=== PATIENT | female | born 1945 | race Caucasian/White ===

== ENCOUNTER → 2016-10-16 | Outpatient (CLI) | payer MEDICARE, OTHER ==
[2016-10-16 10:19] LABS: ALBUMIN 3.3 GM/DL (3.2-5.2); ALBUMIN/GLOBULIN RATIO 0.94 (1.00-1.93); ALKALINE PHOSPHATASE 95 U/L (45-117); ALT/SGPT 23 U/L (12-78); ANION GAP 15 MEQ/L (8-16); AST/SGOT 13 U/L (15-37); BILIRUBIN,TOTAL 0.3 MG/DL (0.2-1.0); BLOOD UREA NITROGEN 16 MG/DL (7-18); CALCIUM LEVEL 8.6 MG/DL (8.8-10.2); CARBON DIOXIDE LEVEL 26 MEQ/L (21-32); CHLORIDE LEVEL 104 MEQ/L (98-107); CHOLESTEROL LEVEL 213 MG/DL (<200); CREATININE FOR GFR 0.71 MG/DL (0.55-1.02); GLOMERULAR FILTRATION RATE > 60.0 (>39); GLUCOSE, FASTING 138 MG/DL (83-110); POTASSIUM SERUM 4.1 MEQ/L (3.5-5.1); SODIUM LEVEL 145 MEQ/L (136-145); TOTAL PROTEIN 6.8 GM/DL (6.4-8.2); TRIGLYCERIDES LEVEL 225 MG/DL (<150)
== END ==
LOC: M WUC 08:21
PROVIDERS: ATTEND Nurse Practitioner Family
DX: E78.2 Mixed hyperlipidemia (principal); E55.9 Vitamin D deficiency, unspecified; E11.65 Type 2 diabetes mellitus with hyperglycemia; E89.0 Postprocedural hypothyroidism

== ENCOUNTER 2017-02-21 10:15 | Emergency (ER) | payer MEDICARE, OTHER ==
[~2017-02-21] VITALS: Ht 162.6 cm; Wt 83.9 kg
[2017-02-21] MEDS ORDERED: LEVO150T7 PO (10:35)
[2017-02-21] MEDS ORDERED: INSUH10VL (10:35)
[2017-02-21] MEDS ORDERED: ATEN50TA2 PO (10:35)
[2017-02-21] MEDS ORDERED: VITA500C3 PO (10:35)
[2017-02-21] MEDS ORDERED: INSUDET (10:35)
[2017-02-21] MEDS ORDERED: METF500T PO (10:35)
[2017-02-21] MEDS ORDERED: TUMS500C PO (10:35)
[2017-02-21] MEDS ORDERED: ASPI1TAB PO (10:35)
[2017-02-21] MEDS ORDERED: LISI10TA4 PO (10:35)
[2017-02-21] MEDS ORDERED: ALPR0.5T3 PO (10:35)
[2017-02-21] MEDS ORDERED: MULT1TAB18 PO (10:35)
[2017-02-21] MEDS ORDERED: KETOROLAC 30 MG/ML VIAL (J1885) IM ONE (11:00)
[2017-02-21 11:59] VITALS: BP 173/84
--- NOTE | 2017-02-21 11:59 | REP ---
CERVICAL SPINE, AP AND LATERAL: Five views of cervical spine are performed in the AP and lateral projection. The study is extremely limited. C6 vertebral body cannot be visualized. C7 is grossly normal in height. There is mild diffuse spurring. There is posterior facet narrowing, sclerosis, and spurring. This probably causes mild anterior listhesis of C3 and C4. IMPRESSION: Diffuse degenerative changes. Limited visualization of C6 and C7. No fracture is seen of the visualized osseous structures, but underlying fracture of cervical spine cannot completely be excluded. In order to exclude cervical spine fracture, CT would be needed. Signed by Parveen Quinonez MD 02/21/2017 04:21 P
[2017-02-21] MEDS ORDERED: CYCL10TA PO (12:04)
[2017-02-21] MEDS ORDERED: ACET30TAB PO (12:04)
== END 2017-02-21 12:16 | disposition home or self-care (01) ==
LOC: M ED 11:01
DX: M43.6 Torticollis (principal); M50.30 Other cervical disc degeneration, unspecified cervical region; F99 Mental disorder, not otherwise specified; E07.9 Disorder of thyroid, unspecified; Z88.8 Allergy status to other drugs, medicaments and biological substances; Z79.899 Other long term (current) drug therapy; Z79.4 Long term (current) use of insulin; Z79.84 Long term (current) use of oral hypoglycemic drugs
CPT/HCPCS: 72040; 96372; 99282; J1885; J3360

== ENCOUNTER 2017-04-09 17:40 | Inpatient (IN) | payer MEDICARE, OTHER ==
[~2017-04-09] VITALS: Ht 162.6 cm; Wt 79.3 kg
[~2017-04-09 17:40] MED LIST changes: -ACET500T37 PO; -METF500T PO; +METF500T13 PO; -METH-107 PO; -VITA-121 PO
[2017-04-09] MEDS ORDERED: MORPHINE 4 MG/ML 1ML SYRINGE IV ONE (18:00)
[2017-04-09] MEDS ORDERED: ONDANSETRON 4MG/2ML VIAL (J2405) IV ONE (18:00)
[2017-04-09 18:12] LABS: BASO # 0.1 K/mm3 (0.0-0.2); BASO % 0.6 % (0.0-1.0); EOS # 0.1 K/mm3 (0.0-0.50); EOS % 0.9 % (0.0-3.0); LARGE UNSTAINED CELL # 0.3 K/mm3 (0.0-0.4); LARGE UNSTAINED CELL % 2.1 % (0.0-4.0); LYMPH # 2.7 K/mm3 (1.5-4.5); LYMPH % 20.7 % (24.0-44.0); MEAN CORPUSCULAR HEMOGLOBIN 27.4 pg (27.0-33.0); MEAN CORPUSCULAR HGB CONC 32.8 g/dl (32.0-36.5); MEAN CORPUSCULAR VOLUME 83.4 fl (80.0-96.0); MONO # 0.7 K/mm3 (0.0-0.8); MONO % 5.5 % (0.0-5.0); NEUTROPHILS # 8.3 K/mm3 (1.8-7.7); NEUTROPHILS % 70.2 % (36.0-66.0); PLATELET COUNT, AUTOMATED 312 k/mm3 (150-450); RED CELL DISTRIBUTION WIDTH 14.6 % (11.5-14.5); WHITE BLOOD COUNT 11.8 K/mm3 (4.0-10.0)
[2017-04-09 18:27] LABS: INR 0.9
[2017-04-09 18:42] LABS: ANION GAP 7 MEQ/L (8-16); BLOOD UREA NITROGEN 11 MG/DL (7-18); CALCIUM LEVEL 9.2 MG/DL (8.8-10.2); CARBON DIOXIDE LEVEL 29 MEQ/L (21-32); CHLORIDE LEVEL 102 MEQ/L (98-107); CREATININE FOR GFR 0.52 MG/DL (0.55-1.02); GLOMERULAR FILTRATION RATE > 60.0 (>39); GLUCOSE, FASTING 151 MG/DL (83-110); POTASSIUM SERUM 4.2 MEQ/L (3.5-5.1); SODIUM LEVEL 138 MEQ/L (136-145)
[2017-04-09] MEDS ORDERED: VITA-121 PO (18:56)
[2017-04-09] MEDS ORDERED: INSUDET SC (18:56)
[2017-04-09] MEDS ORDERED: METH1TAB40 PO (18:57)
[2017-04-09] MEDS ORDERED: ACET-683 PO (18:59)
[2017-04-09] MEDS ORDERED: CYCL10TA PO (18:59)
[2017-04-09] MEDS ORDERED: DEXTROSE 50% 50 ML SYRINGE IV PRN (19:30)
[2017-04-09] MEDS ORDERED: IPRATROPIUM 0.5MG/ALBUTEROL 2.5MG INH SOL UD 3ML (DUONEB)(J7620) NEB PRN (19:30)
[2017-04-09] MEDS: IPRATROPIUM 0.5MG/ALBUTEROL 2.5MG INH SOL UD 3ML (DUONEB)(J7620) NEB SCH (20:00)
[2017-04-09] MEDS: LEVEMIR (INSULIN DETEMIR) 1 UNITS/0.01ML SC SCH (21:00)
[2017-04-09] MEDS: HumaLOG INSULIN (NovoLOG) PER UNIT SC SCH (21:00)
[2017-04-09] MEDS: NYSTATIN 100,000 UNITS/GM TOPICAL PWD 15 GM TOP SCH (21:00)
[2017-04-09 21:10] VITALS: BP 139/63
--- NOTE | 2017-04-09 21:20 | REPUSA ---
MRI cervical spine with and without contrast Clinical statement: Pain, possible pathologic fracture. Technique: Multiecho multiplanar MRI images of the cervical spine were obtained without administratio n of contrast. No comparison is available. Findings: The cervical vertebral bodies are in satisfactory position and alignment. There is diffuse T1 hypointensity with heterogeneous T2 signal within the C6 vertebral body. Loss of vertebral body he ight is noted at this level. On postcontrast images, there is enhancement surrounding the vertebral b jamari, with soft tissue both anterior and posterior to the vertebral body this level. Moderate central canal narrowing is noted at this level, measuring 11 mm in diameter. There is a second similar area o f bone marrow signal demonstrated within the posterior elements of T2, which also demonstrates enhanc ement on postcontrast images. Several other scattered areas of bone marrow signal abnormality is seen within the C7 and T1 vertebral bodies. No extraosseous soft tissue component is seen at this site ho wever. The visualized portions of the posterior fossa are unremarkable. The cervical cranial junctio n is intact. The surrounding soft tissues are within normal limits. At the cervical vertebral levels, there is no evidence of disc herniation or protrusion. There is no central canal stenosis. The neural foramina are patent bilaterally. Impression: 1. Gross abnormal signal within C6, with compression fracture noted. Diffuse enhancement on postcontr ast images with extensive anterior and posterior extraosseous soft tissue is noted at this level, cau sing moderate central canal stenosis. The findings are highly suspicious for metastatic disease with extraosseous soft tissue metastatic extension, although infection cannot completely be excluded. Clin ical correlation is recommended. 2. Second area of abnormal signal in enhancement within the posterior elements of T2. Other scattered areas of bone marrow signal abnormality are also seen within C7 and T1. All of these lesions are fur ther evidenced is suspect metastatic disease. 3. If there is continued concern regarding full extent of osseous metastatic involvement, nuclear med icine bone scan may be helpful.
[2017-04-09] MEDS ORDERED: SLF 3 ML SYR IV PRN (22:15)
[2017-04-09] MEDS: MORPHINE 2 MG/ML 1ML SYRINGE IV PRN (22:56)
[2017-04-10] VITALS: BP 141/63
[2017-04-10] MEDS ORDERED: METHOCARBAMOL 500 MG TAB PO PRN
[2017-04-10] MEDS ORDERED: ACETAMINOPHEN 500 MG TAB PO PRN
[2017-04-10] MEDS: ALPRAZolam 0.5 MG TAB PO PRN ×2 (00:48→12:58)
[2017-04-10] MEDS: LISINOPRIL 10 MG TAB PO SCH ×6 (00:48→23:10)
[2017-04-10] MEDS: ASPIRIN 81 MG ENTERIC TAB PO SCH ×3 (00:48→23:10)
[2017-04-10] MEDS: ATENOLOL 50 MG TAB PO SCH ×5 (00:49→23:11)
[2017-04-10] MEDS: IPRATROPIUM 0.5MG/ALBUTEROL 2.5MG INH SOL UD 3ML (DUONEB)(J7620) NEB SCH ×4 (02:00→19:47)
[2017-04-10] MEDS: MORPHINE 2 MG/ML 1ML SYRINGE IV PRN ×3 (02:53→19:34)
[2017-04-10 04:00] VITALS: BP 136/63
[2017-04-10] MEDS: CYCLOBENZAPRINE 10 MG TAB PO PRN (04:32)
[2017-04-10] MEDS: SLF 3 ML SYR IV SCH ×3 (04:33→23:13)
--- NOTE | 2017-04-10 05:45 | HPE ---
DATE OF ADMISSION: 04/09/2017 CHIEF COMPLAINT: Neck pain. HISTORY OF PRESENT ILLNESS: The patient is a 71-year-old female with a few months history of neck and left shoulder pain. She was worked up by primary care, Dr. North, and with an x-ray which was unremarkable. She was treated with Tylenol and Flexeril muscle relaxant. She said within the last week, symptoms have progressed, pain as well as loss of strength on the left shoulder and upper arm. She returned to her primary care doctor today who recommended a CT scan of the cervical spine. It was read as a pathological C6 compression fracture. The patient was sent to the hospital for admission. Upon arrival, she was in a cervical collar. Blood pressure was slightly elevated at 168/74. She was given a dose of morphine which she responded improved. She denies chest pain, palpitations, headache, blurry vision, diarrhea, nausea, vomiting, constipation. REVIEW OF SYSTEMS: 10-point system is assessed except listed above in history of present illness (HPI). PAST MEDICAL HISTORY: 1. Hypertension. 2. Hypothyroidism. 3. Anxiety. 4. Vitamin D deficiency. 5. Insulin-dependent diabetes. 6. Lower back pain. 7. Hyperlipidemia. PAST SURGICAL HISTORY: 1. Cholecystectomy. 2. Appendectomy. 3. Total abdominal hysterectomy. 4. Thyroid ablation. FAMILY HISTORY: The patient denies, but notes from her primary care doctor indicated that her father at the age of 54 from cirrhosis due to alcohol abuse, diabetes. Mother in her 90s. She had hypertension, diabetes, and coronary artery disease. She also had coronary artery bypass graft (CABG). She has siblings with high blood pressure, hypertension, and daughter with diabetes. She has a son with diabetes, another son with kidney disease. SOCIAL HISTORY: She never smoked. Denies alcohol abuse or illicit drug use. Has never had a colonoscopy or mammogram. Also no Pap test after total hysterectomy with bilateral salpingo-oophorectomy. She is . Currently lives with . ALLERGIES: 1. Paxil, reaction shortness of breath. 2. STATINS, nausea. MEDICATIONS: - Tylenol with codeine one tablet by mouth four times a day as needed - cyclobenzaprine 10 mg three times a day as needed - alprazolam 0.5 mg tablet daily - Levemir insulin 60 units in a.m., 65 units in p.m. - aspart insulin sliding scale coverage - metformin 500 mg four times a day - levothyroxine 100 mcg once daily - atenolol 50 mg three times a day - lisinopril 10 mg four times a day - aspirin 81 mg once a day - multivitamin - ascorbic acid 500 mg daily - calcium carbonate 500 mg once a day PHYSICAL EXAMINATION: VITAL SIGNS: Blood pressure 139/63, pulse of 90, respiratory rate 18, oxygen saturation 92% on room air, temperature 98.7 degrees Fahrenheit. GENERAL: The patient is alert and oriented to person, place, time and circumstance. In moderate distress, slightly improved. HEENT: Pupils equal, round, and reactive to light. Extraocular muscles intact. Anicteric sclerae. Mucous membranes moist. Trachea midline. CARDIOVASCULAR: S1, S2 present. Rate is regular. No audible murmur. RESPIRATORY: Lungs clear to auscultation bilaterally. GASTROINTESTINAL (GI): Abdomen is soft, nontender, nondistended. Bowel sounds are normal. No guarding or rebound. RECTAL: Exam deferred. GENITOURINARY: Exam deferred. MUSCULOSKELETAL: No edema, cyanosis, calf tenderness. SKIN: Warm and dry, not cyanotic without obvious rash. NEUROLOGIC: The patient has slight weakness mostly in the left upper extremity. No sensation loss noted. Gait assess deferred. LABORATORY DATA: Hematology: White blood cell count 11, hemoglobin 13, hematocrit 40, platelets 312. Chemistry: Sodium 138, potassium 4.2, chloride 102, bicarbonate 29, BUN 11, creatinine 0.52, glucose 151, calcium 9.2. Coagulopathy: PT 12.3, INR 0.90. IMAGING: CT scan reveals C6 pathological fracture. ASSESSMENT: A 71-year-old female who has declined screening tests for most of her life presenting with a few-months history of neck and left shoulder pain, some weakness, unimproved with treatment. CT scan revealing a C6 pathological fracture. IMPRESSION: 1. C6 pathological fracture, possible metastatic disease. 2. History of hypertension. 3. History of insulin-dependent diabetes. 4. History of hyperlipidemia. 5. History of hypothyroidism, stable. 6. Hypertension, stable. 7. Diabetes, stable. 8. History of anxiety and panic attacks, stable as well. PLAN: The patient is admitted to the progressive care unit (PCU). Will continue pain management with morphine 2 mg every two hours as needed for pain. Neurosurgeon, Dr. Zaldivar, was consulted, informed as well. He recommended MRI with and without contrast. Resume the patient's remaining home medications. Monitor fingersticks before meals and at bedtime, covering with sliding-scale insulin, and also resume her Levemir insulin a.m. and p.m. same doses, and deep venous thrombosis (DVT) prophylaxis with Lovenox. Order neurologic checks every four hours.
[2017-04-10] MEDS: HumaLOG INSULIN (NovoLOG) PER UNIT SC SCH ×5 (07:30→21:00)
--- NOTE | 2017-04-10 07:56 | IPNPDOC ---
Subjective Date Seen The patient was seen on 04/10/17. Subjective Chief Complaint/HPI The patient is a 71-year-old female admitted with a reason for visit of C6 Cervical Fracture. Events since last encounter Pt denies any new issues. States pain is under control. Wearing cervical collar. Denies significant weakness. Denies headaches. Denies CP or SOB. Constitutional: Denies: Chills, Fever ENT: Denies: Head Aches Pulmonary: Denies: Dyspnea Cardiovascular: Denies: Chest Pain, Palpitations Gastrointestinal: Denies: Nausea, Vomiting, Abdominal Pain Objective Physical Examination General Exam: Positive: Alert, Cooperative, No Acute Distress Eye Exam: Positive: PERRLA ENT Exam: Positive: Tongue Midline Neck Exam: Positive: Other (wearing cervical collar) Chest Exam: Positive: Clear to auscultation Heart Exam: Positive: Rate Normal, Regular Rhythm Abdomen Exam: Positive: Normal bowel sounds, Soft, Negative: Tenderness Extremity Exam: Negative: Edema Neuro Exam: Positive: Normal Speech, Strength at 5/5 X4 ext (left upper extremity with some weakness with extension/flexion compared to right. Water Resource Specialist appeared to be equal B/L), Sensation Intact, Reflexes 2+ (upper extremity DTRs equal and satifactory B/L) Psych Exam: Positive: Mental status NL Assessment /Plan Problems (1) C6 cervical fracture Status: Acute Problem Specific Plan: Consult Specialist Problem Text: Neurosurgery has been consulted. Pt wearing cervical collar. Pt states she has had neck and shoulder pain since October. Cervical Xrays from February did not show fracture. Pt was referred to Ortho but did not go. She stated that symptoms started to worsen last week including some weakness in the left upper extremity which was new, and she saw her PCP last week who ordered a Cervical CT. The CT was done on 04/09 and showed a suspected pathologic fracture of C6 and C6 retropulsion. The patient was sent to the ER for admission and neurosurgical consult. According to the H&P, neurosurgery recommended cervical MRI. MRI showed "Gross abnormal signal within C6, with compression fracture noted. Diffuse enhancement on postcontrast images with extensive anterior and posterior extraosseous soft tissue is noted at this level , causing moderate central canal stenosis. The findings are highly suspicious for metastatic disease with extraosseous soft tissue metastatic extension, although infection cannot completely be excluded. Clinical correlation is recommended. Second area of abnormal signal in enhancement within the posterior elements of T2. Other scattered areas of bone marrow signal abnormality are also seen within C7 and T1. All of these lesions are further evidenced is suspect metastatic disease." Will order bone scan. (2) DM2 (diabetes mellitus, type 2) Status: Chronic Problem Specific Plan: Monitor Clinically Problem Text: On Levemir and SSI. (3) HTN (hypertension) Status: Chronic Response to Treatment: Worse Problem Specific Plan: Monitor Clinically Problem Text: On Atenolol and Lisinopril. (4) Hypothyroidism Status: Chronic Problem Specific Plan: Monitor Clinically Problem Text: On Synthroid. (5) Anxiety Status: Acute Problem Specific Plan: Monitor Clinically Problem Text: Getting as needed Xanax. Plan/VTE VTE Prophylaxis Ordered?: Yes Plan Family Medicine Attending Note: I saw and examined Ms. Cunningham this afternoon; I discussed her care with DONIS Ontiveros and I agree with his note above. Patient has been evaluated by Neurosurgery and will hopefully be getting surgery within the next 1-2 days. Bone scan will be done tomorrow. She had no complaints other than neck pain today. BP is mildly elevated this afternoon, which could be related to pain - will continue home antihypertensives and monitor. (KES) VS, I&O, 24H, Fishbone Vital Signs/I&O Vital Signs Date Time Temp Pulse Resp B/P (MAP) Pulse Ox O2 Delivery O2 Flow Rate FiO2 04/10/17 04:00 96.2 88 20 136/63 (87) 90 Room Air I&O- Last 24 Hours up to 6 AM 04/10/17 06:00 Intake Total 75 ml Output Total 525 ml Balance -450 ml Laboratory Data 24H LABS Laboratory Tests 2 04/09/17 18:05: White Blood Count 11.8H, Red Blood Count 4.83, Hemoglobin 13.2, Hematocrit 40.3 , Mean Corpuscular Volume 83.4, Mean Corpuscular Hemoglobin 27.4, Mean Corpuscular Hemoglobin Concent 32.8, Red Cell Distribution Width 14.6H, Platelet Count 312, Neutrophils (%) (Auto) 70.2H, Lymphocytes (%) (Auto) 20.7L, Monocytes (%) (Auto) 5.5H, Eosinophils (%) (Auto) 0.9, Basophils (%) (Auto) 0.6 , Neutrophils # (Auto) 8.3H, Lymphocytes # (Auto) 2.7, Monocytes # (Auto) 0.7, Eosinophils # (Auto) 0.1, Basophils # (Auto) 0.1, Large Unclassified Cells % 2.1 , Large Unclassified Cells # 0.3, Prothrombin Time 12.3, Prothromb Time International Ratio 0.90, Anion Gap 7L, Glomerular Filtration Rate > 60.0, Blood Urea Nitrogen 11, Creatinine 0.52L, Sodium Level 138, Potassium Level 4.2 , Chloride Level 102, Carbon Dioxide Level 29, Calcium Level 9.2 04/09/17 21:56: Bedside Glucose (Misc Panel) 175H 04/10/17 06:21: Bedside Glucose (Misc Panel) 217H CBC/BMP Laboratory Tests 04/09/17 18:05 Red Blood Count 4.83, Mean Corpuscular Volume 83.4, Mean Corpuscular Hemoglobin 27.4, Mean Corpuscular Hemoglobin Concent 32.8, Red Cell Distribution Width 14.6 H, Neutrophils (%) (Auto) 70.2 H, Lymphocytes (%) (Auto) 20.7 L, Monocytes (%) (Auto) 5.5 H, Eosinophils (%) (Auto) 0.9, Basophils (%) (Auto) 0.6, Neutrophils # (Auto) 8.3 H, Lymphocytes # (Auto) 2.7, Monocytes # (Auto) 0.7, Eosinophils # (Auto) 0.1, Basophils # (Auto) 0.1, Calcium Level 9.2 Nadeem Archer Apr 10, 2017 07:56 ADAMS RUELAS MD Apr 10, 2017 16:42
[2017-04-10 08:00] VITALS: BP 163/80
[2017-04-10] MEDS: LEVEMIR (INSULIN DETEMIR) 1 UNITS/0.01ML SC SCH ×2 (08:45→23:12)
[2017-04-10] MEDS: ASCORBIC ACID 500 MG TAB PO SCH (08:45)
[2017-04-10] MEDS: VITAMIN D 1,000 INTERNATIONAL UNITS TABLET PO SCH (08:45)
[2017-04-10] MEDS: CALCIUM CARBONATE 500 MG CHEW U/D PO SCH (08:46)
[2017-04-10] MEDS: ENOXAPARIN 40 MG/0.4 ML SYRINGE (J1650) SC SCH (08:47)
[2017-04-10] MEDS ORDERED: LEVOTHYROXINE 150MCG TABLET (0.15MG) PO SCH (09:00)
[2017-04-10] MEDS: NYSTATIN 100,000 UNITS/GM TOPICAL PWD 15 GM TOP SCH ×2 (09:03→23:12)
[2017-04-10 09:49] LABS: BASO # 0.1 K/mm3 (0.0-0.2); BASO % 0.4 % (0.0-1.0); EOS # 0.1 K/mm3 (0.0-0.50); EOS % 0.4 % (0.0-3.0); LARGE UNSTAINED CELL # 0.2 K/mm3 (0.0-0.4); LARGE UNSTAINED CELL % 1.5 % (0.0-4.0); LYMPH # 2.1 K/mm3 (1.5-4.5); LYMPH % 12.5 % (24.0-44.0); MEAN CORPUSCULAR HGB CONC 32.1 g/dl (32.0-36.5); MEAN CORPUSCULAR VOLUME 84.1 fl (80.0-96.0); MONO # 0.8 K/mm3 (0.0-0.8); MONO % 5.5 % (0.0-5.0); NEUTROPHILS # 11.7 K/mm3 (1.8-7.7); NEUTROPHILS % 79.6 % (36.0-66.0); PLATELET COUNT, AUTOMATED 325 k/mm3 (150-450); RED CELL DISTRIBUTION WIDTH 14.7 % (11.5-14.5); WHITE BLOOD COUNT 14.7 K/mm3 (4.0-10.0)
[2017-04-10 10:01] LABS: ALBUMIN 3.1 GM/DL (3.2-5.2); ALBUMIN/GLOBULIN RATIO 0.94 (1.00-1.93); ALKALINE PHOSPHATASE 94 U/L (45-117); ALT/SGPT 27 U/L (12-78); ANION GAP 8 MEQ/L (8-16); AST/SGOT 23 U/L (15-37); BILIRUBIN,TOTAL 0.3 MG/DL (0.2-1.0); BLOOD UREA NITROGEN 12 MG/DL (7-18); CARBON DIOXIDE LEVEL 30 MEQ/L (21-32); CHLORIDE LEVEL 101 MEQ/L (98-107); GLOMERULAR FILTRATION RATE > 60.0 (>39); GLUCOSE, FASTING 184 MG/DL (83-110); POTASSIUM SERUM 4.5 MEQ/L (3.5-5.1); SODIUM LEVEL 139 MEQ/L (136-145); TOTAL PROTEIN 6.4 GM/DL (6.4-8.2)
[2017-04-10] MEDS: LEVOTHYROXINE 150MCG TABLET (0.15MG) PO SCH (11:27)
[2017-04-10 16:00] VITALS: BP 168/76
[2017-04-10 20:00] VITALS: BP 168/64
[2017-04-10 23:25] VITALS: BP 136/60
[2017-04-11] MEDS: IPRATROPIUM 0.5MG/ALBUTEROL 2.5MG INH SOL UD 3ML (DUONEB)(J7620) NEB SCH ×4 (01:24→19:47)
[2017-04-11 03:30] VITALS: BP 158/72
[2017-04-11] MEDS: ALPRAZolam 0.5 MG TAB PO PRN ×3 (04:24→22:45)
[2017-04-11 05:33] LABS: ADD MANUAL DIFFER YES; MEAN CORPUSCULAR HEMOGLOBIN 26.7 pg (27.0-33.0); MEAN CORPUSCULAR HGB CONC 32.1 g/dl (32.0-36.5); MEAN CORPUSCULAR VOLUME 83.2 fl (80.0-96.0); PLATELET COUNT, AUTOMATED 284 k/mm3 (150-450); RED CELL DISTRIBUTION WIDTH 14.6 % (11.5-14.5); WHITE BLOOD COUNT 22.8 K/mm3 (4.0-10.0)
[2017-04-11 05:50] LABS: ALBUMIN 2.8 GM/DL (3.2-5.2); ALBUMIN/GLOBULIN RATIO 0.76 (1.00-1.93); ALKALINE PHOSPHATASE 108 U/L (45-117); ALT/SGPT 37 U/L (12-78); ANION GAP 8 MEQ/L (8-16); AST/SGOT 45 U/L (15-37); BILIRUBIN,TOTAL 0.6 MG/DL (0.2-1.0); BLOOD UREA NITROGEN 16 MG/DL (7-18); CALCIUM LEVEL 9.3 MG/DL (8.8-10.2); CARBON DIOXIDE LEVEL 29 MEQ/L (21-32); CHLORIDE LEVEL 101 MEQ/L (98-107); CREATININE FOR GFR 0.64 MG/DL (0.55-1.02); GLOMERULAR FILTRATION RATE > 60.0 (>39); GLUCOSE, FASTING 190 MG/DL (83-110); POTASSIUM SERUM 3.4 MEQ/L (3.5-5.1); SODIUM LEVEL 138 MEQ/L (136-145); TOTAL PROTEIN 6.5 GM/DL (6.4-8.2)
[2017-04-11] MEDS: SLF 3 ML SYR IV SCH ×3 (06:00→22:01)
[2017-04-11 06:02] LABS: BANDS 7 % (< 11)
[2017-04-11] MEDS: LEVOTHYROXINE 150MCG TABLET (0.15MG) PO SCH (07:01)
[2017-04-11 08:00] VITALS: BP 138/64
--- NOTE | 2017-04-11 08:13 | CR ---
DATE OF CONSULTATION: 04/10/2017 REASON FOR CONSULTATION: Neck pain, C6 cervical fracture. HISTORY OF PRESENT ILLNESS: Ms. Cunningham is a pleasant 71-year-old right-handed female who states that she has had progressive increasing neck pain for the past 3-4 months. She states back in December, January time period she started having neck pain not associated with any injury, accident, fall or trauma. She states that she went to the emergency room, x-rays were done and she was told they were all negative. Last week her symptoms started to increase, increasing neck pain, shoulder pain radiating into the left and right arm with numbness and tingling in her arms and hands. The numbness and tingling is more constant now. She states that if she would bend her head or neck at any period of time she would have increased numbness and she found that she could not even hold her head up. She would have to use her arms or hands. She went to her primary care provider who had scheduled a CT and she was called and told to immediately go to the emergency room because of a fracture. She denies any leg or foot pain. She denies any leg or foot numbness or tingling. She denies any bowel or bladder dysfunction. She states that it feels like she is losing strength and she feels that she is losing strength in her upper extremities. Her who is here with her also states that he finds that she is losing strength. She denies any headache. No hearing or vision changes. She denies any recent illnesses or fever or chills. ALLERGIES: She is allergic to PAXIL which causes shortness of breath. PAST MEDICAL HISTORY: Significant for insulin dependent diabetes mellitus, hypertension, hypothyroidism, hypercholesteremia, anxiety/panic disorder. PAST SURGICAL HISTORY: She had a thyroidectomy approximately 30 years ago. She had a total hysterectomy 30 years ago. She had a cholecystectomy 10 years ago and appendectomy 10 years ago. SOCIAL AND FAMILY HISTORY: She denies smoking. She denies alcohol use. She is . 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 Her is retired . She states that her mother in early 80s and she had a history of coronary artery disease and diabetes mellitus. Father at 55 secondary to alcoholism. She has a brother 65 alive and well with no major medical problems and a sister 71 alive and well with no major medical problems. REVIEW OF SYSTEMS: Ten-point review of systems is negative except that mentioned in history present illness. MEDICATIONS: - aspirin in the 81 mg daily - lisinopril 10 mg four times a day - atenolol 50 mg three times a day - levofloxacin 100 mcg daily - metformin 500 mg four times a day - Levemir insulin - lorazepam 0.5 mg three times a day as needed PHYSICAL EXAMINATION: GENERAL APPEARANCE: No acute distress. Well-developed, well-nourished overweight female. VITAL SIGNS are in the EMR HEENT: Head is normocephalic, atraumatic. Pupils are equal, round react to light. Extraocular movements full and conjugate. She does have a cervical collar in place. RESPIRATORY: Symmetrical rise and fall of her chest. No tachypnea. CARDIAC: Regular rate rhythm. ABDOMEN: Obese, soft, nontender. MUSCULOSKELETAL/NEUROLOGIC EXAMINATION: Speech is clear and fluent. Smile symmetrical. Tongue midline. Hearing is grossly intact bilaterally to finger rub. Good bilateral shoulder shrug. No pronator drift. She does have positive dysmetria. Positive dysdiadochokinesis. She does have pain with minimal range of motion of her head or neck. A positive Lhermitte's sign is reproduced. Strength: Left bicep is at 4+/5, right bicep is 5-/5. Left triceps is 3-/5, right triceps is 3+/5. Left wrist extension 4/5, flexion on the left wrist is 5-/5. Right wrist extension is 5/5. Right wrist flexion is 5/5. Lower extremities: Quads, hamstrings, gastrocs, anterior tibialis and EHL are bilaterally at 5/5. Gait not tested. She denies any decrease sensation to light touch. No clonus is present. Reflexes: Biceps, triceps, knees and ankles are hypoactive, symmetrical. Toes are downgoing bilaterally. She does have some increased muscle tone, stiffness in her lower extremities bilaterally. She is alert and oriented times three. Judgment good. Mood and affect appropriate to setting. DIAGNOSTIC DATA: She had an Magnetic Resonance Imaging (MRI) of her cervical spine which showed signal abnormalities in C6 vertebral body with compression fracture, posterior displacement of spinal cord. Area of enhancement in C7 also in T1. Suspected metastatic disease. NEUROSURGICAL ASSESSMENT: Pathologic C6 fracture, cervical radiculopathy, spinal cord compression, cervical myelopathy and possible metastatic bone CA. PLAN: Neurosurgical intervention was discussed with the patient given that her physical exam findings and weakness in her upper extremities and mild spinal cord compression and her radicular symptoms. I did speak with the PA from hospitalist service, Nadeem Echeverria. Metastatic workup is going to be performed and medical clearance for surgery. I did discuss with the patient and her anterior cervical diskectomy and fusion and posterior fusion, pedicle screws, johnie instrumentation. I did explain to them the procedure. I also explained to them the risk of this procedure including but not limited to infection, bleeding, heart attack, stroke, , nerve damage, paralysis, quadriparesis, spinal cord damage, need for more surgery, no improvement in condition, worse condition, , no guarantees made. The patient states that she is understanding. We will await the metastatic workup and then proceed with surgical decompression. I have reviewed and discussed this case thoroughly with Dr. Quintana, and we are awaiting clearance. We have discussed with the instrumentation parts sales representative to have available all instrumentation needed for this case. I have also ordered a cervical thoracic brace and a cervical collar. Once the cervical thoracic brace is in place, we will obtain a CT scan of cervical and thoracic spine with stealth protocol. All other medical issues and conditions will be followed by the medical team.
[2017-04-11] MEDS: HumaLOG INSULIN (NovoLOG) PER UNIT SC SCH ×4 (08:42→21:00)
[2017-04-11] MEDS: LEVEMIR (INSULIN DETEMIR) 1 UNITS/0.01ML SC SCH ×2 (08:43→21:00)
[2017-04-11] MEDS: ATENOLOL 50 MG TAB PO SCH ×3 (08:44→21:59)
[2017-04-11] MEDS: CALCIUM CARBONATE 500 MG CHEW U/D PO SCH (08:44)
[2017-04-11] MEDS: ENOXAPARIN 40 MG/0.4 ML SYRINGE (J1650) SC SCH (08:44)
[2017-04-11] MEDS: VITAMIN D 1,000 INTERNATIONAL UNITS TABLET PO SCH (08:44)
[2017-04-11] MEDS: ASCORBIC ACID 500 MG TAB PO SCH (08:45)
[2017-04-11] MEDS: LISINOPRIL 10 MG TAB PO SCH ×4 (08:45→22:00)
[2017-04-11] MEDS: NYSTATIN 100,000 UNITS/GM TOPICAL PWD 15 GM TOP SCH ×2 (08:52→22:01)
--- NOTE | 2017-04-11 09:41 | IPNPDOC ---
Subjective Date Seen The patient was seen on 04/11/17. Subjective Chief Complaint/HPI The patient is a 71-year-old female admitted with a reason for visit of C6 Cervical Fracture. Events since last encounter Pt this morning without new concerns. She has numbness, some tingling in her fingers. Pain is controlled when she is lying down. She doesnt' seem to remember NS coming to see her yesterday. General: Denies: Fatigue Constitutional: Denies: Chills, Fever Pulmonary: Denies: Dyspnea, Cough Cardiovascular: Denies: Chest Pain, Palpitations Gastrointestinal: Denies: Nausea, Vomiting, Diarrhea Neurological: Denies: Weakness Psych: Reports: Mood Normal Objective Physical Examination General Exam: Positive: Alert, Cooperative, No Acute Distress Eye Exam: Positive: PERRLA ENT Exam: Positive: Tongue Midline Neck Exam: Positive: Other (wearing cervical collar) Chest Exam: Positive: Clear to auscultation Heart Exam: Positive: Rate Normal, Regular Rhythm Abdomen Exam: Positive: Normal bowel sounds, Soft, Negative: Tenderness Extremity Exam: Negative: Edema Neuro Exam: Positive: Normal Speech, Strength at 5/5 X4 ext (left upper extremity with some weakness with extension/flexion compared to right. Care Connector appeared to be equal B/L), Sensation Intact, Reflexes 2+ (upper extremity DTRs equal and satifactory B/L) Psych Exam: Positive: Mental status NL Assessment /Plan Problems (1) Metastasis to bone of unknown primary Problem Text: 04/11 obviously favoring lung primary (although never smoked, but chronically exposed to who smokes)-long d/w patient and HCP, , at bedside re biopsy options (probably would need to do percutaneous rather than broncho given unstable C-spine)-they will give me an answer in AM (there is no other family to d/w) 04/11/17 WBBS: There are multiple foci of increased uptake distributed about the axial skeleton including the calvarium, the cervical spine, multiple ribs, the lower thoracic spine, the proximal femurs bilaterally 04/11/17 CT chest Significant left hilar adenopathy causes mass effect on the pulmonary arterial vessels with left upper lobe pulmonary mass lesion and metastatic foci within the left posterior subcutaneous tissues and multiple right ribs. 04/11/17 CT AP: Kidneys demonstrate age-related atrophy and small cysts. 2. Diverticulosis without acute diverticulitis. 3. Moreland catheter in collapsed bladder. 4. No abdominal pelvic adenopathy, mass, or ascites. 5. Lung bases demonstrate severe left hilar adenopathy, left upper lobe 2 cm mass lesion, metastatic focus in the left posterior subcutaneous tissues, and multiple right rib lesions (2) Leukocytosis Problem Text: 04/11/17 WBC to 22.8K, N 91% (04/09/17 11.8)-afebrile, no obvious focal source; therefore: 04/11/17 UCX P 04/11/17 BCX x 2 P (3) C6 cervical fracture Status: Acute Problem Specific Plan: Consult Specialist Problem Text: 04/11 d/w Herbert Michael- stabilization surgery tentatively planned for SatApr 17 pending patient consent and clearance 04/11 Neurosurgery has been consulted. Pt wearing cervical collar. Pt states she has had neck and shoulder pain since October. Cervical Xrays from February did not show fracture. Pt was referred to Ortho but did not go. She stated that symptoms started to worsen last week including some weakness in the left upper extremity which was new, and she saw her PCP last week who ordered a Cervical CT. The CT was done on 04/09 and showed a suspected pathologic fracture of C6 and C6 retropulsion. The patient was sent to the ER for admission and neurosurgical consult. According to the H&P, neurosurgery recommended cervical MRI. MRI showed "Gross abnormal signal within C6, with compression fracture noted. Diffuse enhancement on postcontrast images with extensive anterior and posterior extraosseous soft tissue is noted at this level, causing moderate central canal stenosis. The findings are highly suspicious for metastatic disease with extraosseous soft tissue metastatic extension, although infection cannot completely be excluded. Clinical correlation is recommended. Second area of abnormal signal in enhancement within the posterior elements of T2. Other scattered areas of bone marrow signal abnormality are also seen within C7 and T1. All of these lesions are further evidenced is suspect metastatic disease." (4) DM2 (diabetes mellitus, type 2) Status: Chronic Problem Specific Plan: Monitor Clinically Problem Text: On Levemir and SSI. (5) HTN (hypertension) Status: Chronic Response to Treatment: Worse Problem Specific Plan: Monitor Clinically Problem Text: On Atenolol and Lisinopril. (6) Hypothyroidism Status: Chronic Problem Specific Plan: Monitor Clinically Problem Text: On Synthroid. (7) Anxiety Status: Acute Problem Specific Plan: Monitor Clinically Problem Text: Getting as needed Xanax. Plan/VTE VTE Prophylaxis Ordered?: Yes Plan/Urinary Catheter Reason for insertion/continuin: Critical Pt monitoring VS, I&O, 24H, Fishbone Vital Signs/I&O Vital Signs Date Time Temp Pulse Resp B/P (MAP) Pulse Ox O2 Delivery O2 Flow Rate FiO2 04/11/17 08:44 106 138/64 04/11/17 08:00 97.8 18 92 Room Air I&O- Last 24 Hours up to 6 AM 04/11/17 06:00 Intake Total 1580 ml Output Total 1250 ml Balance 330 ml Laboratory Data 24H LABS Laboratory Tests 2 04/10/17 11:44: Bedside Glucose (Misc Panel) 167H 04/10/17 16:32: Bedside Glucose (Misc Panel) 183H 04/10/17 21:29: Bedside Glucose (Misc Panel) 154H 04/11/17 05:08: Neutrophils 91H, Band Neutrophils 7, Lymphocytes (Manual) 1L, Monocytes (Manual ) 1, Platelet Estimate NORMAL, Red Blood Cell Morphology NORMAL, Anion Gap 8, Glomerular Filtration Rate > 60.0, Blood Urea Nitrogen 16, Creatinine 0.64, Sodium Level 138, Potassium Level 3.4#L, Chloride Level 101, Carbon Dioxide Level 29, Calcium Level 9.3, Aspartate Amino Transf (AST/SGOT) 45H, Alanine Aminotransferase (ALT/SGPT) 37, Alkaline Phosphatase 108, Total Bilirubin 0.6#, Total Protein 6.5, Albumin 2.8L, Albumin/Globulin Ratio 0.76L CBC/BMP Laboratory Tests 04/11/17 05:08 Red Blood Count 5.09, Mean Corpuscular Volume 83.2, Mean Corpuscular Hemoglobin 26.7 L, Mean Corpuscular Hemoglobin Concent 32.1, Red Cell Distribution Width 14.6 H, Calcium Level 9.3, Aspartate Amino Transf (AST/SGOT) 45 H, Alanine Aminotransferase (ALT/SGPT) 37, Alkaline Phosphatase 108, Total Bilirubin 0.6 # , Total Protein 6.5, Albumin 2.8 L ADIN HANSON PA-C Apr 11, 2017 09:40 Yung Mathew M.D. Apr 11, 2017 17:07
[2017-04-11] MEDS ORDERED: GASTROGRAFIN SOLUTION 30ML PO ONE (10:00)
[2017-04-11] MEDS: BISACODYL 5 MG TAB PO PRN (10:17)
[2017-04-11] MEDS ORDERED: GASTROGRAFIN SOLUTION 30ML (Q9963) PO ONE (10:30)
[2017-04-11] MEDS ORDERED: ISOVUE-370 76% 100ML VIAL (Q9967) As Ordered ONE (11:59)
[2017-04-11 12:33] VITALS: BP 157/75
[2017-04-11] MEDS: MORPHINE 2 MG/ML 1ML SYRINGE IV PRN ×2 (12:58→18:44)
[2017-04-11 13:43] LABS: TOTAL PROTEIN 6.7 GM/DL (6.4-8.2)
--- NOTE | 2017-04-11 13:45 | REP ---
Clinical: Mass. Technique: Axial contrast enhanced images from the thoracic inlet to the upper abdomen using 100 ml Isovue 370 intravenous contrast material with coronal and sagittal re-formations. Findings: Conglomerate adenopathy/mass in the left hilar region causes attenuation and narrowing of the second order pulmonary arterial vessels with mass lesions measuring greater than 3.5 cm maximal diameter. Mass in the left upper lobe adjacent to the conglomerate adenopathy is also appreciated and measures 2.1 cm maximal diameter (image 44). Lower lobe, lingular and right middle lobe atelectasis appreciated. 2.4 cm metastatic focus in the left posterior subcutaneous tissues (image 79) and multiple right blastic rib lesions are also appreciated at least involving right third, fifth, sixth, tenth ribs. The heart and pericardium are relatively normal with atherosclerotic changes to the coronary arteries and thoracic aorta noted. Impression: Significant left hilar adenopathy causes mass effect on the pulmonary arterial vessels with left upper lobe pulmonary mass lesion and metastatic foci within the left posterior subcutaneous tissues and multiple right ribs. Signed by Arnoldo Alvarez MD 04/11/2017 01:31 P
--- NOTE | 2017-04-11 13:46 | REP ---
Clinical: Mass. Technique: Axial contrast enhanced images from the lung bases to the pubic symphysis using oral and 100 ml Isovue 370 intravenous contrast material with precontrast and delayed images of the abdomen. Findings: Lung findings including marked left hilar adenopathy and left lung mass as well as multiple metastatic rib lesions and metastatic focus in the left posterior subcutaneous tissues are completely evaluated in concurrent chest CT. Liver, spleen, pancreas, bilateral adrenal glands and kidneys are relatively normal. Kidneys demonstrate small hypodensities compatible with cysts and mild age-related atrophic change. The patient is status post cholecystectomy. The enteric system is without obstruction or acute inflammatory process. Colonic and sigmoid diverticulosis noted without acute diverticulitis. Pelvis demonstrates a Moreland catheter in collapsed bladder and evidence for prior hysterectomy. No significant intraperitoneal or retroperitoneal adenopathy. No obvious abdominal pelvic mass lesion. Atherosclerotic changes to the vasculature noted without aneurysm. Musculoskeletal structures of the abdomen and pelvis demonstrate degenerative changes without further osseous metastatic foci (see chest CT). Impression: 1. Kidneys demonstrate age-related atrophy and small cysts. 2. Diverticulosis without acute diverticulitis. 3. Moreland catheter in collapsed bladder. 4. No abdominal pelvic adenopathy, mass, or ascites. 5. Lung bases demonstrate severe left hilar adenopathy, left upper lobe 2 cm mass lesion, metastatic focus in the left posterior subcutaneous tissues, and multiple right rib lesions. Signed by Arnoldo Alvarez MD 04/11/2017 01:36 P
--- NOTE | 2017-04-11 15:09 | REP ---
WHOLE BODY RADIONUCLIDE BONE SCAN: HISTORY: Abnormal MRI with pathologic fracture at C6. Comparison MRI cervical spine 04/09/2017. Comparison CT chest abdomen and pelvis April 11, 2017. SCINTIGRAPHIC TECHNIQUE: 19.1 mCi technetium 99m MDP is injected and standard whole body bone scan imaging was acquired. SCINTIGRAPHIC FINDINGS: There are multiple foci of increased uptake distributed about the axial skeleton including the calvarium, the cervical spine, multiple ribs, the lower thoracic spine, the proximal femurs bilaterally. This pattern is compatible with skeletal metastatic disease. There also appears to be a lesion in the anterior mandible. There is uptake in bilateral kidneys and in the urinary bladder. There is evidence of a Moreland catheter. IMPRESSION: Skeletal metastatic pattern. Signed by Angel Adler MD 04/11/2017 03:35 P
[2017-04-11 16:00] VITALS: BP 135/69
[2017-04-11 21:05] VITALS: BP 144/66
[2017-04-11] MEDS: ASPIRIN 81 MG ENTERIC TAB PO SCH (21:59)
[2017-04-12 00:18] VITALS: BP 134/67
--- NOTE | 2017-04-12 02:34 | IPN ---
DATE OF SERVICE: 04/11/2017 SUBJECTIVE: The patient was seen this morning with Dr. Quintana. Patient with C6 cervical fracture and condition reviewed with the patient by myself and Dr. Quintana. The severity and critical nature of the case was also thoroughly reviewed with the patient. The patient started having progressive neck pain about 6 weeks ago, had an x-ray which was negative and over the past several weeks she had more neck pain and CT scan was ordered. She states today that her pain is in her neck and upper shoulders bilaterally, but is controlled with pain medication. She denies any new symptoms other than some numbness and tingling in her hands bilaterally. She still complains of weakness in her upper extremities bilaterally. Dr. Quintana reviewed the patient's MRI and CT scan imaging with her. He thoroughly discussed surgical intervention with her in terms of removing pressure from her spinal cord and stabilizing her neck. Also reviewed that cervical fracture is suspicious of metastatic disease. On exam, the patient has cervical collar in place. She has some discomfort with the cervical collar. No acute distress. Vital signs are reviewed in the electronic medical record (EMR). HEENT: Head is normocephalic, atraumatic. Pupils are equal, round, reactive to light. Extraocular movements are full and conjugate. Respiratory: Symmetrical rise and fall of her chest. No respiratory distress. No tachypnea. Cardiac: Regular rate and rhythm. Abdomen: Soft, nontender, obese. Musculoskeletal/neurologic: She still has weakness in her upper extremities bilaterally, left greater than the right. The left bicep is at 4+/5. Right bicep is 5-/5. Left triceps is at 2+/5. The right triceps is 3/5. Intrinsics on the left are 4/5, on the right 4+/5. Gait and balance not tested. She has good strength in her bilateral quads, hamstring, gastrocs, tibialis, iliopsoas are strong at 5/5. No clonus is present. Toes are downgoing. She is alert and oriented times three. Judgment, insight good. Mood and affect appropriate to setting. SURGICAL ASSESSMENT: Pathologic C6 fracture, cervical radiculopathy, spinal cord compression, cervical myelopathy. PLAN: The medical team is performing a metastatic workup and will await their conclusion. From a neurosurgical standpoint, did discuss with her a C6 corpectomy, anterior fusion with posterior stabilization with pedicle screws, johnie and instrumentation. The patient felt that if this is malignant, she did not want to proceed with surgical intervention. The severity of the case was discussed with her and the need for a diagnosis. She tentatively agreed to proceed. We will await the metastatic workup and proceed from there. Surgery is going to be tentatively scheduled for next week. Dr. Quintana was present and thoroughly discussed the aforementioned with the patient.
[2017-04-12 03:50] VITALS: BP 139/63
[2017-04-12 05:43] LABS: BASO # 0.1 K/mm3 (0.0-0.2); BASO % 0.3 % (0.0-1.0); EOS % 0.2 % (0.0-3.0); LARGE UNSTAINED CELL # 0.3 K/mm3 (0.0-0.4); LARGE UNSTAINED CELL % 1.5 % (0.0-4.0); LYMPH # 1.4 K/mm3 (1.5-4.5); LYMPH % 6.2 % (24.0-44.0); MEAN CORPUSCULAR HEMOGLOBIN 27.3 pg (27.0-33.0); MEAN CORPUSCULAR VOLUME 82.8 fl (80.0-96.0); MONO % 5.3 % (0.0-5.0); NEUTROPHILS % 86.5 % (36.0-66.0); PLATELET COUNT, AUTOMATED 260 k/mm3 (150-450); WHITE BLOOD COUNT 18.6 K/mm3 (4.0-10.0)
[2017-04-12] MEDS: LEVOTHYROXINE 150MCG TABLET (0.15MG) PO SCH (06:04)
[2017-04-12] MEDS: SLF 3 ML SYR IV SCH ×3 (06:04→20:32)
[2017-04-12 06:45] LABS: ALBUMIN 2.7 GM/DL (3.2-5.2); ALBUMIN/GLOBULIN RATIO 0.69 (1.00-1.93); ALKALINE PHOSPHATASE 95 U/L (45-117); ALT/SGPT 42 U/L (12-78); ANION GAP 10 MEQ/L (8-16); AST/SGOT 28 U/L (15-37); BILIRUBIN,TOTAL 0.3 MG/DL (0.2-1.0); BLOOD UREA NITROGEN 17 MG/DL (7-18); CALCIUM LEVEL 9.1 MG/DL (8.8-10.2); CARBON DIOXIDE LEVEL 30 MEQ/L (21-32); CHLORIDE LEVEL 102 MEQ/L (98-107); CREATININE FOR GFR 0.55 MG/DL (0.55-1.02); GLOMERULAR FILTRATION RATE > 60.0 (>39); GLUCOSE, FASTING 91 MG/DL (83-110); POTASSIUM SERUM 3.8 MEQ/L (3.5-5.1); SODIUM LEVEL 142 MEQ/L (136-145); TOTAL PROTEIN 6.6 GM/DL (6.4-8.2)
[2017-04-12] MEDS: IPRATROPIUM 0.5MG/ALBUTEROL 2.5MG INH SOL UD 3ML (DUONEB)(J7620) NEB SCH ×3 (07:04→20:00)
[2017-04-12] MEDS: HumaLOG INSULIN (NovoLOG) PER UNIT SC SCH ×4 (07:30→20:32)
[2017-04-12] MEDS: ALPRAZolam 0.5 MG TAB PO PRN (07:47)
[2017-04-12 07:57] VITALS: BP 127/58
[2017-04-12] MEDS: VITAMIN D 1,000 INTERNATIONAL UNITS TABLET PO SCH (09:34)
[2017-04-12] MEDS: ASCORBIC ACID 500 MG TAB PO SCH (09:34)
[2017-04-12] MEDS: CALCIUM CARBONATE 500 MG CHEW U/D PO SCH (09:34)
[2017-04-12] MEDS: LISINOPRIL 10 MG TAB PO SCH ×4 (09:34→20:32)
[2017-04-12] MEDS: ATENOLOL 50 MG TAB PO SCH ×3 (09:35→20:31)
[2017-04-12] MEDS: LEVEMIR (INSULIN DETEMIR) 1 UNITS/0.01ML SC SCH ×2 (09:35→20:31)
[2017-04-12] MEDS: ENOXAPARIN 40 MG/0.4 ML SYRINGE (J1650) SC SCH (09:36)
[2017-04-12] MEDS: NYSTATIN 100,000 UNITS/GM TOPICAL PWD 15 GM TOP SCH ×2 (09:36→20:33)
[2017-04-12 09:56] LABS: ALBUMIN 3.28 GM/DL (3.29-5.55)
[2017-04-12] MEDS: MORPHINE 2 MG/ML 1ML SYRINGE IV PRN ×2 (10:50→13:04)
--- NOTE | 2017-04-12 11:02 | IPNPDOC ---
Subjective Date Seen The patient was seen on 04/12/17. Subjective Chief Complaint/HPI The patient is a 71-year-old female admitted with a reason for visit of C6 Cervical Fracture. Events since last encounter Pt without new concerns today. Her is at bedside, they are quite overwhelmed with her current situations and the information that they have been given the last few days. General: Denies: Fatigue Constitutional: Denies: Chills, Fever Pulmonary: Denies: Dyspnea, Cough Cardiovascular: Denies: Chest Pain, Palpitations Gastrointestinal: Denies: Nausea, Vomiting, Diarrhea Neurological: Reports: Weakness, Numbness (currently denies BUE numbness) Psych: Reports: Mood Normal Objective Physical Examination General Exam: Positive: Alert, Cooperative, No Acute Distress ENT Exam: Positive: Mucous membr. moist/pink, Tongue Midline Neck Exam: Positive: Other (wearing cervical collar) Chest Exam: Positive: Clear to auscultation, Negative: Diminished Heart Exam: Positive: Rate Normal, Regular Rhythm Abdomen Exam: Positive: Normal bowel sounds, Soft, Negative: Tenderness Extremity Exam: Negative: Edema Neuro Exam: Positive: Normal Speech, Strength at 5/5 X4 ext (left upper extremity with some weakness with extension/flexion compared to right. Handwriting Expert appeared to be equal B/L), Sensation Intact, Reflexes 2+ (upper extremity DTRs equal and satifactory B/L) Psych Exam: Positive: Mental status NL Assessment /Plan Problems (1) Metastasis to bone of unknown primary Problem Text: 04/12 I have spoken with the pt and her as well as Dr Frausto regarding bx options, pt is agreeable to bx at that time, plan for this today thru IR. 04/11 obviously favoring lung primary (although never smoked, but chronically exposed to who smokes)-long d/w patient and HCP, , at bedside re biopsy options (probably would need to do percutaneous rather than broncho given unstable C-spine)-they will give me an answer in AM (there is no other family to d/w) 04/11/17 WBBS: There are multiple foci of increased uptake distributed about the axial skeleton including the calvarium, the cervical spine, multiple ribs, the lower thoracic spine, the proximal femurs bilaterally 04/11/17 CT chest Significant left hilar adenopathy causes mass effect on the pulmonary arterial vessels with left upper lobe pulmonary mass lesion and metastatic foci within the left posterior subcutaneous tissues and multiple right ribs. 04/11/17 CT AP: Kidneys demonstrate age-related atrophy and small cysts. 2. Diverticulosis without acute diverticulitis. 3. Moreland catheter in collapsed bladder. 4. No abdominal pelvic adenopathy, mass, or ascites. 5. Lung bases demonstrate severe left hilar adenopathy, left upper lobe 2 cm mass lesion, metastatic focus in the left posterior subcutaneous tissues, and multiple right rib lesions (2) Leukocytosis Problem Text: 04/12 - wbc down from 22.8 to 18.6, urine and blood cx x 2 remain pending. 04/11/17 WBC to 22.8K, N 91% (04/09/17 11.8)-afebrile, no obvious focal source; therefore: 04/11/17 UCX P 04/11/17 BCX x 2 P (3) C6 cervical fracture Status: Acute Problem Specific Plan: Consult Specialist Problem Text: 04/12 - NS would like to speak with Dr Mathew, he has been made aware, 04/11 d/w Herbert Michael- stabilization surgery tentatively planned for SatApr 17 pending patient consent and clearance 04/11 Neurosurgery has been consulted. Pt wearing cervical collar. Pt states she has had neck and shoulder pain since October. Cervical Xrays from February did not show fracture. Pt was referred to Ortho but did not go. She stated that symptoms started to worsen last week including some weakness in the left upper extremity which was new, and she saw her PCP last week who ordered a Cervical CT. The CT was done on 04/09 and showed a suspected pathologic fracture of C6 and C6 retropulsion. The patient was sent to the ER for admission and neurosurgical consult. According to the H&P, neurosurgery recommended cervical MRI. MRI showed "Gross abnormal signal within C6, with compression fracture noted. Diffuse enhancement on postcontrast images with extensive anterior and posterior extraosseous soft tissue is noted at this level, causing moderate central canal stenosis. The findings are highly suspicious for metastatic disease with extraosseous soft tissue metastatic extension, although infection cannot completely be excluded. Clinical correlation is recommended. Second area of abnormal signal in enhancement within the posterior elements of T2. Other scattered areas of bone marrow signal abnormality are also seen within C7 and T1. All of these lesions are further evidenced is suspect metastatic disease." (4) DM2 (diabetes mellitus, type 2) Status: Chronic Problem Specific Plan: Monitor Clinically Problem Text: On Levemir and SSI. (5) HTN (hypertension) Status: Chronic Response to Treatment: Worse Problem Specific Plan: Monitor Clinically Problem Text: On Atenolol and Lisinopril. (6) Hypothyroidism Status: Chronic Problem Specific Plan: Monitor Clinically Problem Text: On Synthroid. (7) Anxiety Status: Acute Problem Specific Plan: Monitor Clinically Problem Text: Getting as needed Xanax. Plan/VTE VTE Prophylaxis Ordered?: Yes Plan/Urinary Catheter Reason for insertion/continuin: Critical Pt monitoring VS, I&O, 24H, Fishbone Vital Signs/I&O Vital Signs Date Time Temp Pulse Resp B/P (MAP) Pulse Ox O2 Delivery O2 Flow Rate FiO2 04/12/17 10:50 20 Nasal Cannula 2.0 04/12/17 09:35 85 127/58 04/12/17 07:57 98.2 96 I&O- Last 24 Hours up to 6 AM 04/12/17 05:59 Intake Total 1160 ml Output Total 1075 ml Balance 85 ml Laboratory Data 24H LABS Laboratory Tests 2 04/11/17 12:28: Bedside Glucose (Misc Panel) 310H 04/11/17 12:52: Total Protein (PEP) 6.7, Albumin (%) 49.0L, Ceqrs-4-Qaitjgnpm (%) 7.4H, Alpha-2- Globulins (%) 13.7H, Gamma Globulins (%) 12.0, Meuvx-2-Rujazcilu 0.50H, Alpha-2- Globulins 0.92, Gamma Globulins 0.80, Protein Electrophoresis Interpret SEE COMMENT, Albumin (PEP) 3.28L, Kxrk-6-Vgmsmuxp 0.82H, Mtzf-6-Aobiwytg (%) 12.3H, Lcue-0-Zjgypqtv 0.38, Fxsd-5-Lljeqkke (%) 5.6, CA 15-3 Antigen 15.6, Immunotype (Immunosubtraction) SEE COMMENT 04/11/17 14:34: Bedside Glucose (Misc Panel) 260H 04/11/17 15:00: Urine Appearance CLEAR, Urine Color YELLOW, Urine pH 6.0, Urine Specific [place] >1.060H, Urine Protein NEGATIVE, Urine Glucose (UA) NEGATIVE, Urine Ketones NEGATIVE, Urine Urobilinogen 0.2, Urine Bilirubin NEGATIVE, Urine Leukocyte Esterase 2+H, Urine Blood NEGATIVE, Urine Nitrite NEGATIVE, Urine WBC (Auto) 13H, Urine RBC (Auto) 4H, Urine Hyaline Casts (Auto) 0, Urine Bacteria ( Auto) 1+H, Urine Squamous Epithelial Cells 1, Urine Mucus (Auto) SMALL, Urine Sperm (Auto) 04/11/17 17:30: Bedside Glucose (Misc Panel) 195H 04/12/17 04:58: White Blood Count 18.6H, Red Blood Count 4.66, Hemoglobin 12.7, Hematocrit 38.6 , Mean Corpuscular Volume 82.8, Mean Corpuscular Hemoglobin 27.3, Mean Corpuscular Hemoglobin Concent 33.0, Red Cell Distribution Width 15.0H, Platelet Count 260, Neutrophils (%) (Auto) 86.5H, Lymphocytes (%) (Auto) 6.2L, Monocytes (%) (Auto) 5.3H, Eosinophils (%) (Auto) 0.2, Basophils (%) (Auto) 0.3 , Neutrophils # (Auto) 16.0H, Lymphocytes # (Auto) 1.4L, Monocytes # (Auto) 1.0H , Eosinophils # (Auto) 0.0, Basophils # (Auto) 0.1, Large Unclassified Cells % 1.5, Large Unclassified Cells # 0.3, Anion Gap 10, Glomerular Filtration Rate > 60.0, Blood Urea Nitrogen 17, Creatinine 0.55, Sodium Level 142, Potassium Level 3.8, Chloride Level 102, Carbon Dioxide Level 30, Calcium Level 9.1, Aspartate Amino Transf (AST/SGOT) 28, Alanine Aminotransferase (ALT/SGPT) 42, Alkaline Phosphatase 95, Total Bilirubin 0.3, Total Protein 6.6, Albumin 2.7L, Albumin/Globulin Ratio 0.69L CBC/BMP Laboratory Tests 04/12/17 04:58 Red Blood Count 4.66, Mean Corpuscular Volume 82.8, Mean Corpuscular Hemoglobin 27.3, Mean Corpuscular Hemoglobin Concent 33.0, Red Cell Distribution Width 15.0 H, Neutrophils (%) (Auto) 86.5 H, Lymphocytes (%) (Auto) 6.2 L, Monocytes ( %) (Auto) 5.3 H, Eosinophils (%) (Auto) 0.2, Basophils (%) (Auto) 0.3, Neutrophils # (Auto) 16.0 H, Lymphocytes # (Auto) 1.4 L, Monocytes # (Auto) 1.0 H, Eosinophils # (Auto) 0.0, Basophils # (Auto) 0.1, Calcium Level 9.1, Aspartate Amino Transf (AST/SGOT) 28, Alanine Aminotransferase (ALT/SGPT) 42, Alkaline Phosphatase 95, Total Bilirubin 0.3, Total Protein 6.6, Albumin 2.7 L Microbiology Microbiology 04/11/17 Blood Culture, Received Pending 04/11/17 Blood Culture, Received Pending 04/11/17 Urine Culture, Received Pending ADIN HANSON PA-C Apr 12, 2017 11:02
[2017-04-12] MEDS ORDERED: LIDOCAINE 1% MDV 20ML VIAL As Ordered ONE (11:16)
[2017-04-12 12:10] VITALS: BP 105/52
--- NOTE | 2017-04-12 13:44 | ECGEPIP ---
Stationary ECG Study [facility] Test Date: 2017-04-11 Pat Name: DIDIER MCALLISTER Department: Room: [place] [address] Gender: F [employer]ow Farm Technician: : 1945 Requested By: ADIN Barraza PA-C Order Number: [id number] Reading MD: Kendrick Monzon Measurements Intervals [place] Rate: 93 P: 51 NM: 159 QRS: -7 QRSD: 98 T: 27 QT: 363 QTc: 453 Interpretive Statements SINUS RHYTHM MODERATE VOLTAGE CRITERIA FOR LVH, CONSIDER NORMAL VARIANT INFERIOR MYOCARDIAL INFARCTION, PROBABLY OLD POOR R WAVE PROGRESSION NO PRIOR Electronically Signed On 04-12-2017 13:43:42 EDT by Kendrick Monzon
--- NOTE | 2017-04-12 14:00 | REP ---
ULTRASOUND-GUIDED RIGHT FLANK/RIB MASS BIOPSY: The procedure was performed by Ina STOREY, under the direct supervision of Dr. Adler. The procedure along with the risks, benefits, and complications were discussed with the patient. Informed consent was obtained both verbally and written. Following universal protocol, patient and site verification was performed with a "time-out" prior to the procedure. Patient was positioned supine, the right arm above her head. The lesion was localized with real-time ultrasonography. The skin was cleansed with Chloraprep. 10 mL of 1% Xylocaine was used for local anesthesia. A transverse approach to the target was used. A 19-gauge guide needle was then advanced to the edge of the mass under ultrasound guidance. A 20-gauge [place] biopsy device was advanced through the guide needle to the target location. A total of five biopsy specimens were obtained with ultrasound documenting needle placement for each pass. Specimens were sent to pathology for analysis. Results are pending. Following the procedure, the wound was cleansed and compressed. A sterile gauze and dressing were applied to the site of the biopsy. The patient tolerated the procedure well and was discharged back to the floor. Reviewed by RALEIGH Williamson 04/12/2017 02:16 PEdited and Signed by Angel Adler MD 04/12/2017 05:14 P
[2017-04-12 16:40] VITALS: BP 121/58
[2017-04-12] MEDS: BISACODYL 5 MG TAB PO PRN (18:55)
[2017-04-12 20:00] VITALS: BP 109/62
[2017-04-12] MEDS: ASPIRIN 81 MG ENTERIC TAB PO SCH (20:31)
[2017-04-13] VITALS: BP 136/67
[2017-04-13] MEDS: IPRATROPIUM 0.5MG/ALBUTEROL 2.5MG INH SOL UD 3ML (DUONEB)(J7620) NEB SCH ×4 (01:24→20:00)
[2017-04-13] MEDS: ALPRAZolam 0.5 MG TAB PO PRN ×2 (02:16→12:03)
[2017-04-13] MEDS: MORPHINE 2 MG/ML 1ML SYRINGE IV PRN ×3 (03:47→18:17)
[2017-04-13 04:00] VITALS: BP 131/61
[2017-04-13 05:28] LABS: MEAN CORPUSCULAR HGB CONC 32.3 g/dl (32.0-36.5); MEAN CORPUSCULAR VOLUME 83.6 fl (80.0-96.0); RED CELL DISTRIBUTION WIDTH 14.6 % (11.5-14.5); WHITE BLOOD COUNT 16.8 K/mm3 (4.0-10.0)
[2017-04-13] MEDS: LEVOTHYROXINE 150MCG TABLET (0.15MG) PO SCH (05:37)
[2017-04-13] MEDS: SLF 3 ML SYR IV SCH ×3 (05:37→22:00)
[2017-04-13 05:44] LABS: ALBUMIN 2.5 GM/DL (3.2-5.2); ALBUMIN/GLOBULIN RATIO 0.64 (1.00-1.93); ALKALINE PHOSPHATASE 80 U/L (45-117); ALT/SGPT 29 U/L (12-78); ANION GAP 7 MEQ/L (8-16); AST/SGOT 19 U/L (15-37); BILIRUBIN,TOTAL 0.3 MG/DL (0.2-1.0); BLOOD UREA NITROGEN 31 MG/DL (7-18); CALCIUM LEVEL 8.8 MG/DL (8.8-10.2); CARBON DIOXIDE LEVEL 32 MEQ/L (21-32); CHLORIDE LEVEL 100 MEQ/L (98-107); GLOMERULAR FILTRATION RATE > 60.0 (>39); GLUCOSE, FASTING 69 MG/DL (83-110); POTASSIUM SERUM 3.9 MEQ/L (3.5-5.1); SODIUM LEVEL 139 MEQ/L (136-145); TOTAL PROTEIN 6.4 GM/DL (6.4-8.2)
[2017-04-13] MEDS: HumaLOG INSULIN (NovoLOG) PER UNIT SC SCH ×4 (06:28→20:32)
[2017-04-13 08:00] VITALS: BP 138/56
[2017-04-13] MEDS: ASCORBIC ACID 500 MG TAB PO SCH (09:09)
[2017-04-13] MEDS: CALCIUM CARBONATE 500 MG CHEW U/D PO SCH (09:09)
[2017-04-13] MEDS: VITAMIN D 1,000 INTERNATIONAL UNITS TABLET PO SCH (09:09)
[2017-04-13] MEDS: ENOXAPARIN 40 MG/0.4 ML SYRINGE (J1650) SC SCH (09:09)
[2017-04-13] MEDS: LISINOPRIL 10 MG TAB PO SCH ×4 (09:09→20:32)
[2017-04-13] MEDS: LEVEMIR (INSULIN DETEMIR) 1 UNITS/0.01ML SC SCH ×2 (09:10→20:36)
[2017-04-13] MEDS: ATENOLOL 50 MG TAB PO SCH ×3 (09:10→20:31)
[2017-04-13] MEDS: NYSTATIN 100,000 UNITS/GM TOPICAL PWD 15 GM TOP SCH ×2 (09:11→20:36)
--- NOTE | 2017-04-13 11:35 | IPNPDOC ---
Subjective Date Seen The patient was seen on 04/13/17. Subjective Chief Complaint/HPI The patient is a 71-year-old female admitted with a reason for visit of C6 Cervical Fracture. Events since last encounter Patient plans to continue with cervical fixation for quality of life. She understands that she most likely has metastatic lung cancer. Her pain is controlled, she denies any difficulty with breathing, and she is maintaining her spirits. Constitutional: Denies: Chills, Fever Pulmonary: Denies: Dyspnea Cardiovascular: Denies: Chest Pain, Palpitations Gastrointestinal: Denies: Nausea, Vomiting, Abdominal Pain Musculoskeletal: Reports: Neck Pain Neurological: Denies: Weakness, Numbness, Incoordination, Change in speech Psych: Reports: Anxiety Objective Physical Examination General Exam: Positive: Alert, Cooperative, No Acute Distress ENT Exam: Positive: Mucous membr. moist/pink, Tongue Midline Neck Exam: Positive: Other (wearing cervical collar) Chest Exam: Positive: Clear to auscultation, Negative: Rales, Diminished Heart Exam: Positive: Rate Normal, Regular Rhythm Abdomen Exam: Positive: Normal bowel sounds, Soft, Negative: Tenderness Extremity Exam: Negative: Edema Neuro Exam: Positive: Normal Speech, Sensation Intact Psych Exam: Positive: Mental status NL Assessment /Plan Problems (1) Metastasis to bone of unknown primary Status: Acute Problem Text: Patient plans to go for cervical fixation on Saturday. Awaiting biopsy results. (2) Leukocytosis Problem Text: Patient is afebrile, white count remains elevated. No current signs or symptoms of infection. Most likely secondary to metastatic disease. (3) C6 cervical fracture Status: Acute Problem Specific Plan: Consult Specialist Problem Text: Stabilization surgery tentatively planned for SatApr 17 pending patient consent and clearance. Neurosurgery has been consulted. Pt wearing cervical collar. (4) DM2 (diabetes mellitus, type 2) Status: Chronic Problem Specific Plan: Monitor Clinically Problem Text: On Levemir and SSI. (5) HTN (hypertension) Status: Chronic Response to Treatment: Worse Problem Specific Plan: Monitor Clinically Problem Text: On Atenolol and Lisinopril. (6) Hypothyroidism Status: Chronic Problem Specific Plan: Monitor Clinically Problem Text: On Synthroid. (7) Anxiety Status: Acute Problem Specific Plan: Monitor Clinically Problem Text: Getting as needed Xanax. Plan/VTE VTE Prophylaxis Ordered?: Yes Plan/Urinary Catheter Reason for insertion/continuin: Critical Pt monitoring VS, I&O, 24H, Fishbone Vital Signs/I&O Vital Signs Date Time Temp Pulse Resp B/P (MAP) Pulse Ox O2 Delivery O2 Flow Rate FiO2 04/13/17 09:30 20 Nasal Cannula 2.0 04/13/17 09:10 83 138/56 04/13/17 08:00 98.5 95 I&O- Last 24 Hours up to 6 AM 04/13/17 06:00 Intake Total 420 ml Output Total 775 ml Balance -355 ml Laboratory Data 24H LABS Laboratory Tests 2 04/12/17 12:41: Bedside Glucose (Misc Panel) 112H 04/12/17 16:54: Bedside Glucose (Misc Panel) 111H 04/12/17 20:10: Bedside Glucose (Misc Panel) 182H 04/13/17 05:12: Anion Gap 7L, Glomerular Filtration Rate > 60.0, Blood Urea Nitrogen 31#H, Creatinine 0.70, Sodium Level 139, Potassium Level 3.9, Chloride Level 100, Carbon Dioxide Level 32, Calcium Level 8.8, Aspartate Amino Transf (AST/SGOT) 19 , Alanine Aminotransferase (ALT/SGPT) 29, Alkaline Phosphatase 80, Total Bilirubin 0.3, Total Protein 6.4, Albumin 2.5L, Albumin/Globulin Ratio 0.64L 04/13/17 06:26: Bedside Glucose (Misc Panel) 125H CBC/BMP Laboratory Tests 04/13/17 05:12 Red Blood Count 4.47, Mean Corpuscular Volume 83.6, Mean Corpuscular Hemoglobin 27.0, Mean Corpuscular Hemoglobin Concent 32.3, Red Cell Distribution Width 14.6 H, Calcium Level 8.8, Aspartate Amino Transf (AST/SGOT) 19, Alanine Aminotransferase (ALT/SGPT) 29, Alkaline Phosphatase 80, Total Bilirubin 0.3, Total Protein 6.4, Albumin 2.5 L Microbiology Microbiology 04/11/17 Blood Culture - Preliminary, Resulted No growth after 24 hours . All specim... 04/11/17 Blood Culture - Preliminary, Resulted No growth after 24 hours . All specim... 04/11/17 Urine Culture, Received Pending MICHELLE SANDOVAL MD Apr 13, 2017 11:35
[2017-04-13 12:00] VITALS: BP 141/64
[2017-04-13 15:30] VITALS: BP 129/62
[2017-04-13] MEDS: CYCLOBENZAPRINE 10 MG TAB PO PRN (18:39)
[2017-04-13] MEDS: ASPIRIN 81 MG ENTERIC TAB PO SCH (20:32)
[2017-04-13 22:00] VITALS: BP 115/62
[2017-04-14] MEDS: IPRATROPIUM 0.5MG/ALBUTEROL 2.5MG INH SOL UD 3ML (DUONEB)(J7620) NEB SCH ×4 (01:22→20:00)
[2017-04-14] MEDS: SLF 3 ML SYR IV SCH ×3 (06:00→20:50)
[2017-04-14] MEDS: LEVOTHYROXINE 150MCG TABLET (0.15MG) PO SCH (06:08)
[2017-04-14 06:25] LABS: ANION GAP 6 MEQ/L (8-16); BLOOD UREA NITROGEN 30 MG/DL (7-18); CARBON DIOXIDE LEVEL 33 MEQ/L (21-32); CHLORIDE LEVEL 103 MEQ/L (98-107); CREATININE FOR GFR 0.52 MG/DL (0.55-1.02); GLOMERULAR FILTRATION RATE > 60.0 (>39); GLUCOSE, FASTING 51 MG/DL (83-110); SODIUM LEVEL 142 MEQ/L (136-145)
[2017-04-14] MEDS: HumaLOG INSULIN (NovoLOG) PER UNIT SC SCH ×4 (07:30→20:44)
[2017-04-14] MEDS: LEVEMIR (INSULIN DETEMIR) 1 UNITS/0.01ML SC SCH ×2 (09:00→20:44)
[2017-04-14] MEDS: LISINOPRIL 10 MG TAB PO SCH ×4 (09:19→20:43)
[2017-04-14] MEDS: ENOXAPARIN 40 MG/0.4 ML SYRINGE (J1650) SC SCH (09:19)
[2017-04-14] MEDS: ASCORBIC ACID 500 MG TAB PO SCH (09:19)
[2017-04-14] MEDS: ATENOLOL 50 MG TAB PO SCH ×3 (09:20→20:44)
[2017-04-14] MEDS: CALCIUM CARBONATE 500 MG CHEW U/D PO SCH (09:20)
[2017-04-14] MEDS: VITAMIN D 1,000 INTERNATIONAL UNITS TABLET PO SCH (09:20)
[2017-04-14] MEDS: ALPRAZolam 0.5 MG TAB PO PRN ×2 (09:20→20:48)
[2017-04-14] MEDS: NYSTATIN 100,000 UNITS/GM TOPICAL PWD 15 GM TOP SCH ×2 (09:21→20:49)
[2017-04-14] MEDS: MORPHINE 2 MG/ML 1ML SYRINGE IV PRN ×2 (11:46→15:57)
[2017-04-14] MEDS ORDERED: BISACODYL 10 MG SUPP PR PRN (12:15)
[2017-04-14 14:00] VITALS: BP 138/63
[2017-04-14] MEDS: METHOCARBAMOL 500 MG TAB PO SCH ×3 (15:36→20:44)
--- NOTE | 2017-04-14 15:48 | IPNPDOC ---
Subjective Date Seen The patient was seen on 04/14/17. Subjective Chief Complaint/HPI The patient is a 71-year-old female admitted with a reason for visit of C6 Cervical Fracture. Events since last encounter Patient doing better today. Was seen by neurosurgery, who indicated that she could get up with her C-spine brace. Her spirits are better today. Her pain is controlled. She is having some issues with constipation, and would like something to help with this. Constitutional: Denies: Chills, Fever, Malaise, Night Sweats, Weakness Skin: Denies: Rash Pulmonary: Denies: Dyspnea, Cough Cardiovascular: Denies: Chest Pain, Palpitations Gastrointestinal: Reports: Constipation, Denies: Nausea, Vomiting, Abdominal Pain, Diarrhea Genitourinary: Denies: Dysuria Musculoskeletal: Reports: Neck Pain (controlled) Neurological: Reports: Weakness (reports mild weakness of arms bilaterally), Denies: Numbness, Change in speech, Confusion Psych: Reports: Mood Normal Objective Physical Examination General Exam: Positive: Alert, Cooperative, No Acute Distress ENT Exam: Positive: Mucous membr. moist/pink, Tongue Midline Neck Exam: Positive: Other (wearing cervical collar) Chest Exam: Positive: Clear to auscultation, Negative: Rales, Diminished Heart Exam: Positive: Rate Normal, Regular Rhythm Abdomen Exam: Positive: Normal bowel sounds, Soft, Negative: Tenderness Extremity Exam: Negative: Edema Neuro Exam: Positive: Normal Speech, Strength at 5/5 X4 ext (5 out of 5 irrigation specialist strength and arm extension), Sensation Intact Psych Exam: Positive: Mental status NL Assessment /Plan Problems (1) Metastasis to bone of unknown primary Status: Acute Problem Text: Patient plans to go for cervical fixation on Saturday. Awaiting biopsy results. (2) Leukocytosis Problem Text: Patient is afebrile, white count remains elevated. No current signs or symptoms of infection. Most likely secondary to metastatic disease. (3) C6 cervical fracture Status: Acute Problem Specific Plan: Consult Specialist Problem Text: Stabilization surgery tentatively planned for SatApr 17 pending patient consent and clearance. Neurosurgery has been consulted. Pt wearing cervical collar. (4) DM2 (diabetes mellitus, type 2) Status: Chronic Problem Specific Plan: Monitor Clinically Problem Text: On Levemir and SSI. (5) HTN (hypertension) Status: Chronic Response to Treatment: Worse Problem Specific Plan: Monitor Clinically Problem Text: On Atenolol and Lisinopril. (6) Hypothyroidism Status: Chronic Problem Specific Plan: Monitor Clinically Problem Text: On Synthroid. (7) Anxiety Status: Acute Problem Specific Plan: Monitor Clinically Problem Text: Getting as needed Xanax. Plan/VTE VTE Prophylaxis Ordered?: Yes Plan/Urinary Catheter Reason for insertion/continuin: Critical Pt monitoring Disposition Patient awaiting cervical fixation on Saturday VS, I&O, 24H, Fishbone Vital Signs/I&O Vital Signs Date Time Temp Pulse Resp B/P (MAP) Pulse Ox O2 Delivery O2 Flow Rate FiO2 04/14/17 15:36 115/57 04/14/17 15:36 82 04/14/17 12:34 18 Nasal Cannula 3.0 04/13/17 22:00 99.0 93 I&O- Last 24 Hours up to 6 AM 04/14/17 06:00 Intake Total 600 ml Output Total 600 ml Balance 0 ml Laboratory Data 24H LABS Laboratory Tests 2 04/13/17 16:56: Bedside Glucose (Misc Panel) 114H 04/13/17 20:31: Bedside Glucose (Misc Panel) 128H 04/14/17 05:38: Anion Gap 6L, Glomerular Filtration Rate > 60.0, Blood Urea Nitrogen 30H, Creatinine 0.52L, Sodium Level 142, Potassium Level 4.0, Chloride Level 103, Carbon Dioxide Level 33H, Calcium Level 9.0 CBC/BMP Laboratory Tests 04/14/17 05:38 Calcium Level 9.0 Microbiology Microbiology 04/11/17 Blood Culture - Preliminary, Resulted No Growth after 72 hours. All specime... 04/11/17 Blood Culture - Preliminary, Resulted No Growth after 72 hours. All specime... 04/11/17 Urine Culture - Final, Complete Escherichia Coli Sphingomonas Paucimobilis MICHELLE SANDOVAL MD Apr 14, 2017 15:48
[2017-04-14] MEDS: ASPIRIN 81 MG ENTERIC TAB PO SCH (20:43)
[2017-04-14 22:00] VITALS: BP 123/57
[2017-04-15] MEDS: IPRATROPIUM 0.5MG/ALBUTEROL 2.5MG INH SOL UD 3ML (DUONEB)(J7620) NEB SCH ×4 (01:08→20:52)
[2017-04-15 06:00] VITALS: BP 146/67
[2017-04-15] MEDS: LEVOTHYROXINE 150MCG TABLET (0.15MG) PO SCH (06:24)
[2017-04-15] MEDS: SLF 3 ML SYR IV SCH ×3 (06:26→21:48)
[2017-04-15 06:58] LABS: MEAN CORPUSCULAR HEMOGLOBIN 27.3 pg (27.0-33.0); MEAN CORPUSCULAR HGB CONC 32.7 g/dl (32.0-36.5); MEAN CORPUSCULAR VOLUME 83.6 fl (80.0-96.0); RED CELL DISTRIBUTION WIDTH 14.1 % (11.5-14.5); WHITE BLOOD COUNT 14.7 K/mm3 (4.0-10.0)
[2017-04-15 07:29] LABS: ANION GAP 7 MEQ/L (8-16); BLOOD UREA NITROGEN 37 MG/DL (7-18); CARBON DIOXIDE LEVEL 31 MEQ/L (21-32); CHLORIDE LEVEL 103 MEQ/L (98-107); CREATININE FOR GFR 0.57 MG/DL (0.55-1.02); GLOMERULAR FILTRATION RATE > 60.0 (>39); GLUCOSE, FASTING 111 MG/DL (83-110); POTASSIUM SERUM 4.1 MEQ/L (3.5-5.1); SODIUM LEVEL 141 MEQ/L (136-145)
[2017-04-15] MEDS: ATENOLOL 50 MG TAB PO SCH ×3 (08:46→21:23)
[2017-04-15] MEDS: METHOCARBAMOL 500 MG TAB PO SCH ×4 (08:46→21:23)
[2017-04-15] MEDS: LEVEMIR (INSULIN DETEMIR) 1 UNITS/0.01ML SC SCH (08:46)
[2017-04-15] MEDS: ASCORBIC ACID 500 MG TAB PO SCH (08:46)
[2017-04-15] MEDS: ENOXAPARIN 40 MG/0.4 ML SYRINGE (J1650) SC SCH (08:46)
[2017-04-15] MEDS: VITAMIN D 1,000 INTERNATIONAL UNITS TABLET PO SCH (08:46)
[2017-04-15] MEDS: CALCIUM CARBONATE 500 MG CHEW U/D PO SCH (08:47)
[2017-04-15] MEDS: MORPHINE 2 MG/ML 1ML SYRINGE IV PRN (08:47)
[2017-04-15] MEDS: LISINOPRIL 10 MG TAB PO SCH ×4 (08:47→21:23)
[2017-04-15] MEDS: NYSTATIN 100,000 UNITS/GM TOPICAL PWD 15 GM TOP SCH ×2 (08:48→21:25)
[2017-04-15] MEDS: HumaLOG INSULIN (NovoLOG) PER UNIT SC SCH ×4 (08:48→21:00)
--- NOTE | 2017-04-15 10:21 | IPNPDOC ---
Subjective Date Seen The patient was seen on 04/15/17. Subjective Chief Complaint/HPI The patient is a 71-year-old female admitted with a reason for visit of C6 Cervical Fracture. Events since last encounter Pt sitting up wearing cervical collar. Denies CP, SOB, Abd pain. Constitutional: Denies: Chills, Fever Pulmonary: Denies: Dyspnea Cardiovascular: Denies: Chest Pain, Palpitations Gastrointestinal: Denies: Nausea, Vomiting, Abdominal Pain Objective Physical Examination General Exam: Positive: Alert, Cooperative, No Acute Distress ENT Exam: Positive: Mucous membr. moist/pink, Tongue Midline Neck Exam: Positive: Other (wearing cervical collar) Chest Exam: Positive: Clear to auscultation, Negative: Rales, Diminished Heart Exam: Positive: Rate Normal, Regular Rhythm Abdomen Exam: Positive: Normal bowel sounds, Soft, Negative: Tenderness Extremity Exam: Negative: Edema Neuro Exam: Positive: Normal Speech, Strength at 5/5 X4 ext (5 out of 5 infertility medical assistant strength and arm extension), Sensation Intact Psych Exam: Positive: Mental status NL Assessment /Plan Assessment Family Medicine Attending Note: I saw and examined Ms. Cunningham, discussed with DONIS Ontiveros. Agree with their note as documented. I had a kris discussion with Mrs. Cunningham today about her prognosis given what appears to be widely metastatic disease on her bone scan. She was understanding. She reports she is feeling a little depressed, which is very understandable. She is also very frustrated about being stuck in collar, but this is necessary to not further injure her spine. She understood that and understands she must keep it on, but still expressed discouragement about it. I discussed the possibility of starting an antidepressant with her. She declined this, but would like to make sure she gets her alprazolam, which she was taking 3 times a day fairly routinely prior to this hospitalization, when she needs it. I clarified this with the nurses. We will wait until we have a tissue diagnosis before contacting oncology. (office executive) Problems (1) Metastasis to bone of unknown primary Status: Acute Problem Text: Patient plans to go for cervical fixation on Saturday. Rib mass bx pending. Awaiting biopsy results. Bone scan: There are multiple foci of increased uptake distributed about the axial skeleton including the calvarium, the cervical spine, multiple ribs, the lower thoracic spine, the proximal femurs bilaterally. This pattern is compatible with skeletal metastatic disease. There also appears to be a lesion in the anterior mandible. Chest CT: Significant left hilar adenopathy causes mass effect on the pulmonary arterial vessels with left upper lobe pulmonary mass lesion and metastatic foci within the left posterior subcutaneous tissues and multiple right ribs. Abd/Pelv CT: Lung bases demonstrate severe left hilar adenopathy, left upper lobe 2 cm mass lesion, metastatic focus in the left posterior subcutaneous tissues, and multiple right rib lesions. (2) C6 cervical fracture Status: Acute Problem Specific Plan: Consult Specialist Problem Text: Stabilization surgery tentatively planned for SatApr 17 pending patient consent and clearance. Neurosurgery has been consulted. Pt wearing cervical collar. (3) UTI (urinary tract infection) Status: Acute Problem Text: 04/15 - WBC 14.7. Urine cx grew EColi and Sphingomonas Paucimobolis. Start Bactrim. (4) Leukocytosis Problem Text: 04/15 - WBC 14.7. Urine cx grew EColi and Sphingomonas Paucimobolis. Start Bactrim. 04/14 - Patient is afebrile, white count remains elevated. No current signs or symptoms of infection. Most likely secondary to metastatic disease. (5) DM2 (diabetes mellitus, type 2) Status: Chronic Problem Specific Plan: Monitor Clinically Problem Text: 04/15 - AM BS have been low. Decrease nighttime Levemir to 50 units (from 65 units). Pt also on Levemir 60 units qAM. On SSI. (6) HTN (hypertension) Status: Chronic Response to Treatment: Worse Problem Specific Plan: Monitor Clinically Problem Text: On Atenolol and Lisinopril. (7) Hypothyroidism Status: Chronic Problem Specific Plan: Monitor Clinically Problem Text: On Synthroid. (8) Anxiety Status: Acute Problem Specific Plan: Monitor Clinically Problem Text: Getting as needed Xanax. Plan/VTE VTE Prophylaxis Ordered?: Yes Plan/Urinary Catheter Reason for insertion/continuin: Critical Pt monitoring VS, I&O, 24H, Fishbone Vital Signs/I&O Vital Signs Date Time Temp Pulse Resp B/P (MAP) Pulse Ox O2 Delivery O2 Flow Rate FiO2 04/15/17 08:47 146/67 04/15/17 08:47 14 04/15/17 08:46 80 04/15/17 06:00 96.8 93 Room Air 04/15/17 04:04 2.0 I&O- Last 24 Hours up to 6 AM 04/15/17 06:00 Intake Total 1560 ml Output Total 900 ml Balance 660 ml Laboratory Data 24H LABS Laboratory Tests 2 04/14/17 12:03: Bedside Glucose (Misc Panel) 280H 04/14/17 16:54: Bedside Glucose (Misc Panel) 263H 04/15/17 06:46: Anion Gap 7L, Glomerular Filtration Rate > 60.0, Blood Urea Nitrogen 37H, Creatinine 0.57, Sodium Level 141, Potassium Level 4.1, Chloride Level 103, Carbon Dioxide Level 31, Calcium Level 9.0 CBC/BMP Laboratory Tests 04/15/17 06:46 Red Blood Count 4.38, Mean Corpuscular Volume 83.6, Mean Corpuscular Hemoglobin 27.3, Mean Corpuscular Hemoglobin Concent 32.7, Red Cell Distribution Width 14.1 , Calcium Level 9.0 Microbiology Microbiology 04/11/17 Blood Culture - Preliminary, Resulted No Growth after 72 hours. All specime... 04/11/17 Blood Culture - Preliminary, Resulted No Growth after 72 hours. All specime... 04/11/17 Urine Culture - Final, Complete Escherichia Coli Sphingomonas Paucimobilis Nadeem Archer Apr 15, 2017 10:21 Leo Rodriguez MD Apr 15, 2017 20:34
[2017-04-15] MEDS: ALPRAZolam 0.5 MG TAB PO PRN ×2 (11:23→21:27)
[2017-04-15] MEDS: BACTRIM 160MG/800MG DS TAB PO SCH ×2 (11:23→21:23)
[2017-04-15 12:22] VITALS: BP 116/58
[2017-04-15 14:00] VITALS: BP 129/58
[2017-04-15 16:42] VITALS: BP 138/62
[2017-04-15] MEDS ORDERED: LEVEMIR (INSULIN DETEMIR) 1 UNITS/0.01ML SC SCH (21:00)
[2017-04-15] MEDS: ASPIRIN 81 MG ENTERIC TAB PO SCH (21:23)
[2017-04-15 22:00] VITALS: BP 148/53
[2017-04-16] MEDS: IPRATROPIUM 0.5MG/ALBUTEROL 2.5MG INH SOL UD 3ML (DUONEB)(J7620) NEB SCH ×4 (02:00→19:42)
[2017-04-16 06:00] VITALS: BP 133/74
[2017-04-16] MEDS: SLF 3 ML SYR IV SCH ×3 (06:04→22:00)
[2017-04-16] MEDS: LEVOTHYROXINE 150MCG TABLET (0.15MG) PO SCH (06:04)
[2017-04-16 07:03] LABS: BASO # 0.1 K/mm3 (0.0-0.2); BASO % 0.4 % (0.0-1.0); EOS # 0.2 K/mm3 (0.0-0.50); EOS % 0.9 % (0.0-3.0); LARGE UNSTAINED CELL # 0.6 K/mm3 (0.0-0.4); LARGE UNSTAINED CELL % 3.3 % (0.0-4.0); LYMPH # 1.7 K/mm3 (1.5-4.5); LYMPH % 10.1 % (24.0-44.0); MEAN CORPUSCULAR HEMOGLOBIN 27.2 pg (27.0-33.0); MEAN CORPUSCULAR HGB CONC 32.6 g/dl (32.0-36.5); MEAN CORPUSCULAR VOLUME 83.6 fl (80.0-96.0); MONO % 5.8 % (0.0-5.0); NEUTROPHILS # 13.5 K/mm3 (1.8-7.7); NEUTROPHILS % 79.5 % (36.0-66.0); PLATELET COUNT, AUTOMATED 314 k/mm3 (150-450); RED CELL DISTRIBUTION WIDTH 14.1 % (11.5-14.5)
[2017-04-16 07:21] LABS: ANION GAP 7 MEQ/L (8-16); BLOOD UREA NITROGEN 37 MG/DL (7-18); CALCIUM LEVEL 8.8 MG/DL (8.8-10.2); CARBON DIOXIDE LEVEL 30 MEQ/L (21-32); CHLORIDE LEVEL 104 MEQ/L (98-107); CREATININE FOR GFR 0.59 MG/DL (0.55-1.02); GLOMERULAR FILTRATION RATE > 60.0 (>39); GLUCOSE, FASTING 101 MG/DL (83-110); POTASSIUM SERUM 3.8 MEQ/L (3.5-5.1); SODIUM LEVEL 141 MEQ/L (136-145)
--- NOTE | 2017-04-16 08:07 | IPNPDOC ---
Subjective Date Seen The patient was seen on 04/16/17. Subjective Chief Complaint/HPI The patient is a 71-year-old female admitted with a reason for visit of C6 Cervical Fracture. Events since last encounter Pt without new concerns. She is anxious about her surgery tomorrow. She cont to have BUE numbness. She is very uncomfortable in the brace that she is wearing. General: Denies: Fatigue Constitutional: Denies: Chills, Fever ENT: Denies: Head Aches Pulmonary: Denies: Dyspnea, Cough Cardiovascular: Denies: Chest Pain, Palpitations Gastrointestinal: Denies: Nausea, Vomiting, Diarrhea Psych: Reports: Depression Objective Physical Examination General Exam: Positive: Alert, Cooperative, No Acute Distress ENT Exam: Positive: Mucous membr. moist/pink, Tongue Midline Neck Exam: Positive: Other (wearing cervical collar) Chest Exam: Positive: Clear to auscultation, Negative: Rales, Diminished Heart Exam: Positive: Rate Normal, Regular Rhythm Abdomen Exam: Positive: Normal bowel sounds, Soft, Negative: Tenderness Extremity Exam: Negative: Edema Neuro Exam: Positive: Normal Speech, Strength at 5/5 X4 ext (5 out of 5 red cap strength and arm extension), Sensation Intact Psych Exam: Positive: Mental status NL Assessment /Plan Problems (1) Metastasis to bone of unknown primary Status: Acute Problem Text: Patient plans to go for cervical fixation on Saturday. Rib mass bx pending. Awaiting biopsy results. Bone scan: There are multiple foci of increased uptake distributed about the axial skeleton including the calvarium, the cervical spine, multiple ribs, the lower thoracic spine, the proximal femurs bilaterally. This pattern is compatible with skeletal metastatic disease. There also appears to be a lesion in the anterior mandible. Chest CT: Significant left hilar adenopathy causes mass effect on the pulmonary arterial vessels with left upper lobe pulmonary mass lesion and metastatic foci within the left posterior subcutaneous tissues and multiple right ribs. Abd/Pelv CT: Lung bases demonstrate severe left hilar adenopathy, left upper lobe 2 cm mass lesion, metastatic focus in the left posterior subcutaneous tissues, and multiple right rib lesions. (2) C6 cervical fracture Status: Acute Problem Specific Plan: Consult Specialist Problem Text: Stabilization surgery tentatively planned for SatApr 17 pending patient consent and clearance. Neurosurgery has been consulted. Pt wearing cervical collar. (3) UTI (urinary tract infection) Status: Acute Problem Text: 04/16 - WBC 29558 today, increased from 04/15. Started on Bactrim which is sensitive to both organism on culture. I suspect part of her leukocytosis could be related to her other pathology. 04/15 - WBC 14.7. Urine cx grew EColi and Sphingomonas Paucimobolis. Start Bactrim. (4) Leukocytosis Problem Text: 04/16 - See above. 04/15 - WBC 14.7. Urine cx grew EColi and Sphingomonas Paucimobolis. Start Bactrim. 04/14 - Patient is afebrile, white count remains elevated. No current signs or symptoms of infection. Most likely secondary to metastatic disease. (5) DM2 (diabetes mellitus, type 2) Status: Chronic Problem Specific Plan: Monitor Clinically Problem Text: 04/16 - Levemir reduced last night, AM glu 101, will reduce further today, especially given planned OR tomorrow. 04/15 - AM BS have been low. Decrease nighttime Levemir to 50 units (from 65 units). Pt also on Levemir 60 units qAM. On SSI. (6) HTN (hypertension) Status: Chronic Response to Treatment: Worse Problem Specific Plan: Monitor Clinically Problem Text: On Atenolol and Lisinopril. (7) Hypothyroidism Status: Chronic Problem Specific Plan: Monitor Clinically Problem Text: On Synthroid. (8) Anxiety Status: Acute Problem Specific Plan: Monitor Clinically Problem Text: Getting as needed Xanax. Plan/VTE VTE Prophylaxis Ordered?: Yes Plan/Urinary Catheter Reason for insertion/continuin: Critical Pt monitoring Plan Attending note: I saw and evaluated the patient, and agree with the plan of care as discussed and documented above. Patient scheduled for cervical fixation tomorrow. Reviewed EKG, which showed no acute findings, decreased RR progression, and probable old infarct. Patient reporting no current symptoms. Although her respiratory status is not ideal, she is doing quite well on 3 L. Her respiratory status is likely to decline with her probable metastatic lung cancer , so postponing her surgery may just affect her remaining quality of life. Her preop calculated cardiac risk is 0.9%. Given low probability of cardiac event, and the possibility for significantly improve quality of life, recommend proceeding with surgical intervention. CLEARED FOR SURGERY Jose F Santos MD VS, I&O, 24H, Fishbone Vital Signs/I&O Vital Signs Date Time Temp Pulse Resp B/P (MAP) Pulse Ox O2 Delivery O2 Flow Rate FiO2 04/16/17 06:00 96.2 80 16 133/74 (93) 94 Nasal Cannula 2.0 I&O- Last 24 Hours up to 6 AM 04/16/17 06:00 Intake Total 120 ml Output Total 200 ml Balance -80 ml Laboratory Data 24H LABS Laboratory Tests 2 04/15/17 16:31: Bedside Glucose (Misc Panel) 171H 04/15/17 20:47: Bedside Glucose (Misc Panel) 190H 04/16/17 06:39: White Blood Count 17.0H, Red Blood Count 4.21, Hemoglobin 11.5L, Hematocrit 35.2L, Mean Corpuscular Volume 83.6, Mean Corpuscular Hemoglobin 27.2, Mean Corpuscular Hemoglobin Concent 32.6, Red Cell Distribution Width 14.1, Platelet Count 314, Neutrophils (%) (Auto) 79.5H, Lymphocytes (%) (Auto) 10.1L, Monocytes (%) (Auto) 5.8H, Eosinophils (%) (Auto) 0.9, Basophils (%) (Auto) 0.4 , Neutrophils # (Auto) 13.5H, Lymphocytes # (Auto) 1.7, Monocytes # (Auto) 1.0H , Eosinophils # (Auto) 0.2, Basophils # (Auto) 0.1, Large Unclassified Cells % 3.3, Large Unclassified Cells # 0.6H 04/16/17 06:40: Anion Gap 7L, Glomerular Filtration Rate > 60.0, Blood Urea Nitrogen 37H, Creatinine 0.59, Sodium Level 141, Potassium Level 3.8, Chloride Level 104, Carbon Dioxide Level 30, Calcium Level 8.8 CBC/BMP Laboratory Tests 04/16/17 06:39 Red Blood Count 4.21, Mean Corpuscular Volume 83.6, Mean Corpuscular Hemoglobin 27.2, Mean Corpuscular Hemoglobin Concent 32.6, Red Cell Distribution Width 14.1 , Neutrophils (%) (Auto) 79.5 H, Lymphocytes (%) (Auto) 10.1 L, Monocytes (%) ( Auto) 5.8 H, Eosinophils (%) (Auto) 0.9, Basophils (%) (Auto) 0.4, Neutrophils # (Auto) 13.5 H, Lymphocytes # (Auto) 1.7, Monocytes # (Auto) 1.0 H, Eosinophils # (Auto) 0.2, Basophils # (Auto) 0.1 04/16/17 06:40 Calcium Level 8.8 Microbiology Microbiology 04/11/17 Blood Culture - Preliminary, Resulted No Growth after 72 hours. All specime... 04/11/17 Blood Culture - Preliminary, Resulted No Growth after 72 hours. All specime... 04/11/17 Urine Culture - Final, Complete Escherichia Coli Sphingomonas Paucimobilis ADIN HANSON PA-C Apr 16, 2017 08:07 JOSE F SANTOS MD Apr 16, 2017 13:22
[2017-04-16] MEDS: LEVEMIR (INSULIN DETEMIR) 1 UNITS/0.01ML SC SCH ×2 (08:54→20:41)
[2017-04-16] MEDS: HumaLOG INSULIN (NovoLOG) PER UNIT SC SCH ×4 (08:55→20:40)
[2017-04-16] MEDS: LISINOPRIL 10 MG TAB PO SCH ×4 (08:55→20:41)
[2017-04-16] MEDS: ASCORBIC ACID 500 MG TAB PO SCH (08:55)
[2017-04-16] MEDS: BACTRIM 160MG/800MG DS TAB PO SCH ×2 (08:55→20:37)
[2017-04-16] MEDS: ENOXAPARIN 40 MG/0.4 ML SYRINGE (J1650) SC SCH (08:55)
[2017-04-16] MEDS: CALCIUM CARBONATE 500 MG CHEW U/D PO SCH (08:56)
[2017-04-16] MEDS: ATENOLOL 50 MG TAB PO SCH ×3 (08:56→20:40)
[2017-04-16] MEDS: VITAMIN D 1,000 INTERNATIONAL UNITS TABLET PO SCH (08:56)
[2017-04-16] MEDS: NYSTATIN 100,000 UNITS/GM TOPICAL PWD 15 GM TOP SCH ×2 (08:56→20:41)
[2017-04-16] MEDS: METHOCARBAMOL 500 MG TAB PO SCH ×4 (09:01→20:37)
[2017-04-16] MEDS: ALPRAZolam 0.5 MG TAB PO PRN (12:18)
[2017-04-16 14:00] VITALS: BP 120/57
--- NOTE | 2017-04-16 14:07 | REP ---
Clinical: Metastatic disease. Technique: Axial noncontrast images from the skull base to the thoracic inlet/T4 level with coronal and sagittal re-formations. Findings: There is a pathologic compression fracture involving T6 with cortical breakthrough and soft tissue extension into the left anterolateral paravertebral space (images 57 - 65). Fracture causes reversal of normal lordosis centered at this level. A similar lytic lesion with cortical breakthrough and subtle soft tissue extension is also identified involving the left posterior arch of T2 (images 87 - 93). Smaller less conspicuous lesions cannot be excluded. Underlying osteopenia and moderate to advanced multilevel degenerative changes are noted throughout the remainder of the cervical and visualized upper thoracic spine. Impression: Pathologic fracture involving C6 and similar metastatic finding involving the left posterior arch of T2. C6 fracture causes reversal of normal lordosis. Underlying osteopenia and moderate/early advanced multilevel degenerative changes. Signed by Arnoldo Alvarez MD 04/16/2017 01:58 P
[2017-04-16 16:15] VITALS: BP 127/59
[2017-04-16] MEDS: ASPIRIN 81 MG ENTERIC TAB PO SCH (20:41)
[2017-04-16 22:00] VITALS: BP 139/64
[2017-04-17] MEDS: KCL 20MEQ in NS 1000ML 1,000 ML IV SCH ×3 (00:23→10:18)
[2017-04-17] MEDS: IPRATROPIUM 0.5MG/ALBUTEROL 2.5MG INH SOL UD 3ML (DUONEB)(J7620) NEB SCH ×4 (01:37→19:40)
[2017-04-17] MEDS: LEVOTHYROXINE 150MCG TABLET (0.15MG) PO SCH (05:16)
[2017-04-17 06:00] VITALS: BP_SYST 130; BP_SYST 139; BP_DIAS 56; BP_DIAS 64
[2017-04-17] MEDS: SLF 3 ML SYR IV SCH ×3 (06:00→20:18)
[2017-04-17 07:05] LABS: BASO # 0.1 K/mm3 (0.0-0.2); BASO % 0.5 % (0.0-1.0); EOS # 0.1 K/mm3 (0.0-0.50); EOS % 0.5 % (0.0-3.0); LARGE UNSTAINED CELL # 0.4 K/mm3 (0.0-0.4); LARGE UNSTAINED CELL % 2.7 % (0.0-4.0); LYMPH # 1.7 K/mm3 (1.5-4.5); LYMPH % 9.8 % (24.0-44.0); MEAN CORPUSCULAR HEMOGLOBIN 27.1 pg (27.0-33.0); MEAN CORPUSCULAR HGB CONC 32.2 g/dl (32.0-36.5); MONO # 0.8 K/mm3 (0.0-0.8); MONO % 5.9 % (0.0-5.0); NEUTROPHILS % 80.5 % (36.0-66.0); PLATELET COUNT, AUTOMATED 350 k/mm3 (150-450); RED CELL DISTRIBUTION WIDTH 14.3 % (11.5-14.5); WHITE BLOOD COUNT 13.6 K/mm3 (4.0-10.0)
[2017-04-17] MEDS ORDERED: REMIFENTANIL 1MG 3ML VIAL As Ordered ONE (07:08)
[2017-04-17] MEDS ORDERED: MIDAZOLAM INJ 2 MG/2 ML VIAL (J2250) As Ordered ONE (07:09)
[2017-04-17] MEDS ORDERED: fentaNYL 250 MCG/5 ML INJECTION (J3010) As Ordered ONE (07:09)
[2017-04-17] MEDS ORDERED: BACITRACIN PWD 50,000 UNITS VIAL As Ordered ONE (07:13)
[2017-04-17] MEDS ORDERED: THROMBIN SOLN 20,000 UNITS KIT As Ordered ONE (07:13)
[2017-04-17 07:23] LABS: ANION GAP 9 MEQ/L (8-16); BLOOD UREA NITROGEN 35 MG/DL (7-18); CALCIUM LEVEL 9.4 MG/DL (8.8-10.2); CARBON DIOXIDE LEVEL 27 MEQ/L (21-32); CHLORIDE LEVEL 102 MEQ/L (98-107); CREATININE FOR GFR 0.68 MG/DL (0.55-1.02); GLOMERULAR FILTRATION RATE > 60.0 (>39); GLUCOSE, FASTING 181 MG/DL (83-110); POTASSIUM SERUM 4.4 MEQ/L (3.5-5.1); SODIUM LEVEL 138 MEQ/L (136-145)
[2017-04-17] MEDS: HumaLOG INSULIN (NovoLOG) PER UNIT SC SCH ×4 (07:30→21:12)
[2017-04-17] MEDS: CALCIUM CARBONATE 500 MG CHEW U/D PO SCH (10:18)
[2017-04-17] MEDS: LISINOPRIL 10 MG TAB PO SCH ×4 (10:19→20:16)
[2017-04-17] MEDS: ASCORBIC ACID 500 MG TAB PO SCH (10:19)
[2017-04-17] MEDS: BACTRIM 160MG/800MG DS TAB PO SCH ×2 (10:19→20:16)
[2017-04-17] MEDS: METHOCARBAMOL 500 MG TAB PO SCH ×4 (10:19→20:16)
[2017-04-17] MEDS: VITAMIN D 1,000 INTERNATIONAL UNITS TABLET PO SCH (10:19)
[2017-04-17] MEDS: ATENOLOL 50 MG TAB PO SCH ×3 (10:20→20:17)
[2017-04-17] MEDS: NYSTATIN 100,000 UNITS/GM TOPICAL PWD 15 GM TOP SCH ×2 (10:20→20:18)
[2017-04-17] MEDS: LEVEMIR (INSULIN DETEMIR) 1 UNITS/0.01ML SC SCH ×2 (10:20→20:16)
--- NOTE | 2017-04-17 11:39 | IPNPDOC ---
Subjective Date Seen The patient was seen on 04/17/17. Subjective Chief Complaint/HPI The patient is a 71-year-old female admitted with a reason for visit of C6 Cervical Fracture. Events since last encounter Pt states she has decided not to have the cervical fixation surgery and would like to consider Hospice instead. She denies any new issues. Constitutional: Denies: Chills, Fever Pulmonary: Denies: Dyspnea Cardiovascular: Denies: Chest Pain Gastrointestinal: Denies: Abdominal Pain Objective Physical Examination General Exam: Positive: Alert, Cooperative, No Acute Distress ENT Exam: Positive: Mucous membr. moist/pink, Tongue Midline Neck Exam: Positive: Other (wearing cervical collar) Chest Exam: Positive: Clear to auscultation, Negative: Rales, Diminished Heart Exam: Positive: Rate Normal, Regular Rhythm Abdomen Exam: Positive: Normal bowel sounds, Soft, Negative: Tenderness Extremity Exam: Negative: Edema Neuro Exam: Positive: Normal Speech, Strength at 5/5 X4 ext (5 out of 5 wire winder strength and arm extension), Sensation Intact Psych Exam: Positive: Mental status NL (she is fully capable of making her own decisions) Assessment /Plan Problems (1) Metastasis to bone of unknown primary Status: Acute Problem Text: 04/17 - Pt has decided against the cervical fixation surgery and proceed with a Hospice consult. She states she is aware of the potentially devastating further cervical injuries including paralysis and by declining the cervical fixation surgery. She states she knows she has more areas of mets throughout her bones and body and is concerned that surgical repair to her current issues may be in vain with the other potential areas of mets/pathology. Currently awaiting path report from [facility]. D/W attending. Bone scan: There are multiple foci of increased uptake distributed about the axial skeleton including the calvarium, the cervical spine, multiple ribs, the lower thoracic spine, the proximal femurs bilaterally. This pattern is compatible with skeletal metastatic disease. There also appears to be a lesion in the anterior mandible. Chest CT: Significant left hilar adenopathy causes mass effect on the pulmonary arterial vessels with left upper lobe pulmonary mass lesion and metastatic foci within the left posterior subcutaneous tissues and multiple right ribs. Abd/Pelv CT: Lung bases demonstrate severe left hilar adenopathy, left upper lobe 2 cm mass lesion, metastatic focus in the left posterior subcutaneous tissues, and multiple right rib lesions. (2) C6 cervical fracture Status: Acute Problem Specific Plan: Consult Specialist Problem Text: 04/17 - Pt has decided against the cervical fixation surgery and proceed with a Hospice consult. She states she is aware of the potentially devastating further cervical injuries including paralysis and by declining the cervical fixation surgery. She states she knows she has more areas of mets throughout her bones and body and is concerned that surgical repair to her current issues may be in vain with the other potential areas of mets/pathology. Currently awaiting path report from [facility]. D/W attending. (3) UTI (urinary tract infection) Status: Acute Problem Text: WBC down to 13.6 today. On Bactrim which is sensitive to both the EColi and Sphingomonas Paucimobolis on culture. Part of her leukocytosis may be related to her other pathology. (4) Leukocytosis Problem Text: 04/17 - WBC down to 13.6 today. On Bactrim which is sensitive to both the EColi and Sphingomonas Paucimobolis on culture. Part of her leukocytosis may be related to her other pathology. 04/16 - See above. 04/15 - WBC 14.7. Urine cx grew EColi and Sphingomonas Paucimobolis. Start Bactrim. 04/14 - Patient is afebrile, white count remains elevated. No current signs or symptoms of infection. Most likely secondary to metastatic disease. (5) DM2 (diabetes mellitus, type 2) Status: Chronic Problem Specific Plan: Monitor Clinically Problem Text: Her BGL have stabilized a bit. Will continue current regimen, monitor. (6) HTN (hypertension) Status: Chronic Response to Treatment: Worse Problem Specific Plan: Monitor Clinically Problem Text: On Atenolol and Lisinopril. (7) Hypothyroidism Status: Chronic Problem Specific Plan: Monitor Clinically Problem Text: On Synthroid. (8) Anxiety Status: Acute Problem Specific Plan: Monitor Clinically Problem Text: Getting as needed Xanax. Plan/VTE VTE Prophylaxis Ordered?: Yes Plan/Urinary Catheter Reason for insertion/continuin: Critical Pt monitoring Plan Therapy: PT, Home Safety Eval (as she is considering home with Hospice) Family Medicine Attending Note: I saw and examined Mrs. Cunningham, discussed with Nadeem Archer, DONIS. Agree with their note as documented. I had an extended conversation with her and her about why she declined surgery today. She reports that she was offered different options and felt a little pushed (by her ) into making the decision to have the cervical fixation done. She is not sure she wants to undergo a difficult surgery with prolonged recovery. She is not sure how quickly the cancer will spread. She wants to take some time to think through her options. She would like to talk with Hospice about what choices they can offer her. More than anything should would like to be discharged from the hospital as soon as possible. (activity manager) VS, I&O, 24H, Fishbone Vital Signs/I&O Vital Signs Date Time Temp Pulse Resp B/P (MAP) Pulse Ox O2 Delivery O2 Flow Rate FiO2 04/17/17 10:19 130/56 04/17/17 06:00 98.0 73 18 91 Nasal Cannula 3.0 I&O- Last 24 Hours up to 6 AM 04/17/17 06:00 Intake Total 720 ml Output Total 600 ml Balance 120 ml Laboratory Data 24H LABS Laboratory Tests 2 04/16/17 11:20: Bedside Glucose (Misc Panel) 216H 04/16/17 16:36: Bedside Glucose (Misc Panel) 161H 04/16/17 20:38: Bedside Glucose (Misc Panel) 105 04/17/17 06:49: White Blood Count 13.6H, Red Blood Count 4.14, Hemoglobin 11.2L, Hematocrit 34.8L, Mean Corpuscular Volume 84.0, Mean Corpuscular Hemoglobin 27.1, Mean Corpuscular Hemoglobin Concent 32.2, Red Cell Distribution Width 14.3, Platelet Count 350, Neutrophils (%) (Auto) 80.5H, Lymphocytes (%) (Auto) 9.8L, Monocytes (%) (Auto) 5.9H, Eosinophils (%) (Auto) 0.5, Basophils (%) (Auto) 0.5, Neutrophils # (Auto) 11.0H, Lymphocytes # (Auto) 1.7, Monocytes # (Auto) 0.8, Eosinophils # (Auto) 0.1, Basophils # (Auto) 0.1, Large Unclassified Cells % 2.7 , Large Unclassified Cells # 0.4, Anion Gap 9, Glomerular Filtration Rate > 60.0 , Blood Urea Nitrogen 35H, Creatinine 0.68, Sodium Level 138, Potassium Level 4.4, Chloride Level 102, Carbon Dioxide Level 27, Calcium Level 9.4 CBC/BMP Laboratory Tests 04/17/17 06:49 Red Blood Count 4.14, Mean Corpuscular Volume 84.0, Mean Corpuscular Hemoglobin 27.1, Mean Corpuscular Hemoglobin Concent 32.2, Red Cell Distribution Width 14.3 , Neutrophils (%) (Auto) 80.5 H, Lymphocytes (%) (Auto) 9.8 L, Monocytes (%) ( Auto) 5.9 H, Eosinophils (%) (Auto) 0.5, Basophils (%) (Auto) 0.5, Neutrophils # (Auto) 11.0 H, Lymphocytes # (Auto) 1.7, Monocytes # (Auto) 0.8, Eosinophils # (Auto) 0.1, Basophils # (Auto) 0.1, Calcium Level 9.4 Microbiology Microbiology 04/11/17 Blood Culture - Final, Complete NO GROWTH AFTER 5 DAYS 04/11/17 Blood Culture - Final, Complete NO GROWTH AFTER 5 DAYS 04/11/17 Urine Culture - Final, Complete Escherichia Coli Sphingomonas Paucimobilis Nadeem Archer RPA-Lázaro Apr 17, 2017 11:39 Leo Rodriguez MD Apr 17, 2017 14:29
[2017-04-17] MEDS: NORCO, ANEXSIA 5/325MG TABLET (HYDROcodone/ACETAMINOPHEN) PO PRN ×2 (13:21→20:17)
[2017-04-17 14:00] VITALS: BP 134/62
[2017-04-17] MEDS: ASPIRIN 81 MG ENTERIC TAB PO SCH (20:16)
[2017-04-17 22:00] VITALS: BP 103/59
[2017-04-18] MEDS: IPRATROPIUM 0.5MG/ALBUTEROL 2.5MG INH SOL UD 3ML (DUONEB)(J7620) NEB SCH ×4 (02:00→20:00)
[2017-04-18] MEDS: LEVOTHYROXINE 150MCG TABLET (0.15MG) PO SCH (05:45)
[2017-04-18] MEDS: NORCO, ANEXSIA 5/325MG TABLET (HYDROcodone/ACETAMINOPHEN) PO PRN ×2 (05:46→13:23)
[2017-04-18] MEDS: SLF 3 ML SYR IV SCH ×3 (05:46→21:21)
[2017-04-18 06:00] VITALS: BP 114/70
[2017-04-18 07:26] LABS: BASO % 0.3 % (0.0-1.0); EOS # 0.2 K/mm3 (0.0-0.50); EOS % 1.8 % (0.0-3.0); LARGE UNSTAINED CELL # 0.2 K/mm3 (0.0-0.4); LARGE UNSTAINED CELL % 2.2 % (0.0-4.0); LYMPH # 1.8 K/mm3 (1.5-4.5); LYMPH % 14.2 % (24.0-44.0); MEAN CORPUSCULAR HEMOGLOBIN 27.1 pg (27.0-33.0); MEAN CORPUSCULAR HGB CONC 32.7 g/dl (32.0-36.5); MEAN CORPUSCULAR VOLUME 82.8 fl (80.0-96.0); MONO # 0.7 K/mm3 (0.0-0.8); MONO % 6.5 % (0.0-5.0); NEUTROPHILS # 8.2 K/mm3 (1.8-7.7); NEUTROPHILS % 74.8 % (36.0-66.0); PLATELET COUNT, AUTOMATED 366 k/mm3 (150-450); RED CELL DISTRIBUTION WIDTH 14.2 % (11.5-14.5)
[2017-04-18] MEDS: HumaLOG INSULIN (NovoLOG) PER UNIT SC SCH ×4 (07:30→21:00)
--- NOTE | 2017-04-18 07:42 | IPNPDOC ---
Subjective Date Seen The patient was seen on 04/18/17. Subjective Chief Complaint/HPI The patient is a 71-year-old female admitted with a reason for visit of C6 Cervical Fracture. Events since last encounter Pt denies any new issues. She has decided against cervical fixation surgery and is awaiting a meeting with hospice. She states the pain meds have helped. She denies CP, Abd pain, SOB. Constitutional: Denies: Chills, Fever Pulmonary: Denies: Dyspnea Cardiovascular: Denies: Chest Pain Gastrointestinal: Denies: Abdominal Pain Objective Physical Examination General Exam: Positive: Alert, Cooperative, No Acute Distress ENT Exam: Positive: Mucous membr. moist/pink, Tongue Midline Neck Exam: Positive: Other (wearing cervical collar) Chest Exam: Positive: Clear to auscultation, Negative: Rales, Diminished Heart Exam: Positive: Rate Normal, Regular Rhythm Abdomen Exam: Positive: Normal bowel sounds, Soft, Negative: Tenderness Extremity Exam: Negative: Edema Neuro Exam: Positive: Normal Speech, Strength at 5/5 X4 ext (5 out of 5 fender repairer strength and arm extension), Sensation Intact Psych Exam: Positive: Mental status NL (she is fully capable of making her own decisions) Assessment /Plan Problems (1) Carcinoid tumor Problem Specific Plan: Consult Specialist (Dr. Finch of medical oncology was consulted today (lisw)) Problem Text: 04/18 - Pt has decided against the cervical fixation surgery and wishes to proceed with a Hospice consult. She states she is aware of the potentially devastating consequences of further cervical injuries including paralysis and by declining the cervical fixation surgery. She states she knows she has more areas of mets throughout her bones and body and is concerned that surgical repair to her current issues may be in vain with the other potential areas of mets/pathology. It was reinforced to the pt that she will need to wear the cervical collar constantly and at all times to protect her cervical spine. It was reinforced to her that failure to wear the cervical collar could result in catastrophic injury including further instability, paralysis, . Pt voiced understanding. Currently awaiting path report from [facility]. Hospice meeting is being arranged. 04/17 - Pt has decided against the cervical fixation surgery and wishes to proceed with a Hospice consult. She states she is aware of the potentially devastating further cervical injuries including paralysis and by declining the cervical fixation surgery. She states she knows she has more areas of mets throughout her bones and body and is concerned that surgical repair to her current issues may be in vain with the other potential areas of mets/pathology. Currently awaiting path report from [facility]. D/W attending. Bone scan: There are multiple foci of increased uptake distributed about the axial skeleton including the calvarium, the cervical spine, multiple ribs, the lower thoracic spine, the proximal femurs bilaterally. This pattern is compatible with skeletal metastatic disease. There also appears to be a lesion in the anterior mandible. Chest CT: Significant left hilar adenopathy causes mass effect on the pulmonary arterial vessels with left upper lobe pulmonary mass lesion and metastatic foci within the left posterior subcutaneous tissues and multiple right ribs. Abd/Pelv CT: Lung bases demonstrate severe left hilar adenopathy, left upper lobe 2 cm mass lesion, metastatic focus in the left posterior subcutaneous tissues, and multiple right rib lesions. (2) C6 cervical fracture Status: Acute Problem Specific Plan: Consult Specialist Problem Text: 04/18 - Pt has decided against the cervical fixation surgery and wishes to proceed with a Hospice consult. She states she is aware of the potentially devastating further cervical injuries including paralysis and by declining the cervical fixation surgery. She states she knows she has more areas of mets throughout her bones and body and is concerned that surgical repair to her current issues may be in vain with the other potential areas of mets/pathology. It was reinforced to the pt that she will need to wear the cervical collar constantly and at all times to protect her cervical spine. It was reinforced to her that failure to wear the cervical collar could likely result in catastrophic injury including further instability, paralysis, . Pt voiced understanding. Currently awaiting path report from [facility]. Hospice meeting is being arranged. 04/17 - Pt has decided against the cervical fixation surgery and wishes to proceed with a Hospice consult. She states she is aware of the potentially devastating further cervical injuries including paralysis and by declining the cervical fixation surgery. She states she knows she has more areas of mets throughout her bones and body and is concerned that surgical repair to her current issues may be in vain with the other potential areas of mets/pathology. Currently awaiting path report from [facility]. D/W attending. (3) UTI (urinary tract infection) Status: Acute Problem Text: 04/18 - WBC down to 11.0 today. On Bactrim which is sensitive to both the EColi and Sphingomonas Paucimobolis on culture. Part of her leukocytosis may be related to her other pathology. 7/5 - WBC down to 13.6 today. On Bactrim which is sensitive to both the EColi and Sphingomonas Paucimobolis on culture. Part of her leukocytosis may be related to her other pathology. (4) Leukocytosis Problem Text: 7/6 - WBC down to 11.0 today. On Bactrim which is sensitive to both the EColi and Sphingomonas Paucimobolis on culture. Part of her leukocytosis may be related to her other pathology. 7/5 - WBC down to 13.6 today. On Bactrim which is sensitive to both the EColi and Sphingomonas Paucimobolis on culture. Part of her leukocytosis may be related to her other pathology. 04/16 - See above. / - WBC 14.7. Urine cx grew EColi and Sphingomonas Paucimobolis. Start Bactrim. 04/14 - Patient is afebrile, white count remains elevated. No current signs or symptoms of infection. Most likely secondary to metastatic disease. (5) DM2 (diabetes mellitus, type 2) Status: Chronic Problem Specific Plan: Monitor Clinically Problem Text: Her BGL have stabilized a bit. Will continue current regimen, monitor. (6) HTN (hypertension) Status: Chronic Response to Treatment: Worse Problem Specific Plan: Monitor Clinically Problem Text: On Atenolol and Lisinopril. (7) Hypothyroidism Status: Chronic Problem Specific Plan: Monitor Clinically Problem Text: On Synthroid. (8) Anxiety Status: Acute Problem Specific Plan: Monitor Clinically Problem Text: Getting as needed Xanax. Plan/VTE VTE Prophylaxis Ordered?: Yes Plan/Urinary Catheter Reason for insertion/continuin: Critical Pt monitoring Plan Therapy: PT, Home Safety Eval (as she is considering home with Hospice) Family Medicine Attending Note: I saw and examined Mrs. Cunningham, discussed with DONIS Ontiveros. Agree with their note as documented. 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 This is an unusual diagnosis and I spoke with the pathologist who read the slides to confirm it. After that I spoke with Dr. Anna Finch of Medical Oncology, who agreed to see the patient and offer some assistance with prognostication. The patient is very interested in going home, but made it clear that she is unlikely to return for many office visits after this. Because of that I think it's important that she get any workup or evaluations that are necessary to have done before she leaves. I do hope we could discharge her as early as tomorrow. She has made contact with Hospice and will be meeting them in her home sometime soon. (lisw) VS, I&O, 24H, Fishbone Vital Signs/I&O Vital Signs Date Time Temp Pulse Resp B/P (MAP) Pulse Ox O2 Delivery O2 Flow Rate FiO2 04/18/17 06:20 18 04/18/17 06:00 98.2 76 114/70 (85) 96 Nasal Cannula 3.0 I&O- Last 24 Hours up to 6 AM 04/18/17 06:00 Intake Total 1380 ml Output Total 800 ml Balance 580 ml Laboratory Data 24H LABS Laboratory Tests 2 04/17/17 20:44: Bedside Glucose (Misc Panel) 256H 04/18/17 07:01: White Blood Count 11.0H, Red Blood Count 3.82L, Hemoglobin 10.3L, Hematocrit 31.6L, Mean Corpuscular Volume 82.8, Mean Corpuscular Hemoglobin 27.1, Mean Corpuscular Hemoglobin Concent 32.7, Red Cell Distribution Width 14.2, Platelet Count 366, Neutrophils (%) (Auto) 74.8H, Lymphocytes (%) (Auto) 14.2L, Monocytes (%) (Auto) 6.5H, Eosinophils (%) (Auto) 1.8, Basophils (%) (Auto) 0.3 , Neutrophils # (Auto) 8.2H, Lymphocytes # (Auto) 1.8, Monocytes # (Auto) 0.7, Eosinophils # (Auto) 0.2, Basophils # (Auto) 0.0, Large Unclassified Cells % 2.2 , Large Unclassified Cells # 0.2 CBC/BMP Laboratory Tests 04/18/17 07:01 Red Blood Count 3.82 L, Mean Corpuscular Volume 82.8, Mean Corpuscular Hemoglobin 27.1, Mean Corpuscular Hemoglobin Concent 32.7, Red Cell Distribution Width 14.2, Neutrophils (%) (Auto) 74.8 H, Lymphocytes (%) (Auto) 14.2 L, Monocytes (%) (Auto) 6.5 H, Eosinophils (%) (Auto) 1.8, Basophils (%) ( Auto) 0.3, Neutrophils # (Auto) 8.2 H, Lymphocytes # (Auto) 1.8, Monocytes # ( Auto) 0.7, Eosinophils # (Auto) 0.2, Basophils # (Auto) 0.0 Microbiology Microbiology 04/11/17 Blood Culture - Final, Complete NO GROWTH AFTER 5 DAYS 04/11/17 Blood Culture - Final, Complete NO GROWTH AFTER 5 DAYS 04/11/17 Urine Culture - Final, Complete Escherichia Coli Sphingomonas Paucimobilis Nadeem Archer Apr 18, 2017 07:42 Leo Rodriguez MD Apr 18, 2017 22:36
[2017-04-18 07:54] LABS: ALBUMIN 2.2 GM/DL (3.2-5.2); ALBUMIN/GLOBULIN RATIO 0.55 (1.00-1.93); ALKALINE PHOSPHATASE 65 U/L (45-117); ALT/SGPT 20 U/L (12-78); ANION GAP 4 MEQ/L (8-16); AST/SGOT 10 U/L (15-37); BILIRUBIN,TOTAL 0.2 MG/DL (0.2-1.0); BLOOD UREA NITROGEN 28 MG/DL (7-18); CALCIUM LEVEL 9.3 MG/DL (8.8-10.2); CARBON DIOXIDE LEVEL 31 MEQ/L (21-32); CHLORIDE LEVEL 106 MEQ/L (98-107); CREATININE FOR GFR 0.52 MG/DL (0.55-1.02); GLOMERULAR FILTRATION RATE > 60.0 (>39); GLUCOSE, FASTING 67 MG/DL (83-110); POTASSIUM SERUM 4.2 MEQ/L (3.5-5.1); SODIUM LEVEL 141 MEQ/L (136-145); TOTAL PROTEIN 6.2 GM/DL (6.4-8.2)
[2017-04-18] MEDS: BACTRIM 160MG/800MG DS TAB PO SCH ×2 (08:40→21:21)
[2017-04-18] MEDS: ASCORBIC ACID 500 MG TAB PO SCH (08:40)
[2017-04-18] MEDS: CALCIUM CARBONATE 500 MG CHEW U/D PO SCH (08:40)
[2017-04-18] MEDS: METHOCARBAMOL 500 MG TAB PO SCH ×4 (08:40→21:00)
[2017-04-18] MEDS: ATENOLOL 50 MG TAB PO SCH ×3 (08:41→23:23)
[2017-04-18] MEDS: LISINOPRIL 10 MG TAB PO SCH ×4 (08:41→23:23)
[2017-04-18] MEDS: NYSTATIN 100,000 UNITS/GM TOPICAL PWD 15 GM TOP SCH ×2 (08:41→21:00)
[2017-04-18] MEDS: VITAMIN D 1,000 INTERNATIONAL UNITS TABLET PO SCH (08:44)
[2017-04-18] MEDS: LEVEMIR (INSULIN DETEMIR) 1 UNITS/0.01ML SC SCH ×2 (08:44→21:00)
[2017-04-18] MEDS: ENOXAPARIN 40 MG/0.4 ML SYRINGE (J1650) SC SCH (09:00)
--- NOTE | 2017-04-18 10:54 | IPN ---
DATE: 04/17/2017 SUBJECTIVE: Ms. Cunningham was seen this morning in the preoperative area. She was going to undergo anterior cervical discectomy and fusion corpectomy C6 and posterior laminectomy and fusion. The patient has a C6 fracture secondary metastatic disease. She does complain of neck pain and weakness in her arms; some numbness in her hands. Today she states that she does not want to proceed with surgical intervention Dr. Quintana did speak to her and explain her that she would be at increased risk for being paralyzed, quadriplegic or dying if she had any slip or fall and that she will need to remain in her cervical bracing collar. The patient states that she understands but she does not want to proceed with any surgical intervention. At this point in time, patient family services was consulted and saw the patient. Surgery was put on hold until after consultation. PHYSICAL EXAMINATION: Vital signs: Blood pressure 130/56, heart rate 73, respiratory rate of 18. The patient still has significant weakness in her triceps, left greater than right. Biceps are weak bilaterally. Scrap Handler are weak. She has good strength in her lower extremities with minimal week. She is alert and oriented times three. Judgment and insight is good. Mood and affect are appropriate to setting. ASSESSMENT: Cervical myelopathy C6 compression fracture secondary metastatic disease, quadriparesis PLAN: The patient does not want to undergo any surgical intervention. The patient family services did discuss with the patient and states that the patient wanted to cancel surgery. We advised the patient the risk that she could be paralyzed with any simple fall, and then she would need to continue to wear her hard cervical collar which she states is uncomfortable. The patient verbally acknowledges the risk but wishes to cancel surgery. With this, neurosurgery will be signing off this case.
[2017-04-18] MEDS: ALPRAZolam 0.5 MG TAB PO PRN (13:23)
[2017-04-18 14:00] VITALS: BP 113/56
[2017-04-18] MEDS ORDERED: NORCO, ANEXSIA 5/325MG TABLET (HYDROcodone/ACETAMINOPHEN) PO PRN (19:30)
--- NOTE | 2017-04-18 20:56 | CR ---
DATE OF CONSULTATION: 04/18/[address] Dr. Leo Rodriguez requested medical oncology consult for evaluation and management recommendations regarding metastatic carcinoid diagnosis in a 71-year-old patient presenting with C2 pathologic fracture. Argenis Cunningham is a 71-year-old woman of [place] origin, a long time [place] citizen with usual for age medical problems, who over the last several months has had decreased appetite, weight loss and progressive shoulder and back pain. She sought medical attention for this on a few occasions, was treated with muscle relaxants, finally underwent MRI of the cervical spine 04/09/2017, with finding of abnormal signal within C6 with compression fracture noted, additional abnormal enhancement in T2, scattered bone marrow abnormalities involving C7 and T1, suspected widespread metastatic disease. Specifically, loss of vertebral height was noted at C6 level with soft tissue anterior and posterior to the vertebral body and moderate central canal narrowing. Chest CT demonstrated a conglomerate adenopathy in the left hilar region with narrowing of the pulmonary arterial vessels, mass lesions greater than 3.5 cm, in addition a mass in the left upper lobe adjacent to the adenopathy measuring 2.1 cm. Left posterior subcutaneous tissue mass was also seen as well as multiple blastic rib lesions. Abdomen and pelvis CT revealed unremarkable liver, spleen, pancreas, kidneys, no obvious abdominal or pelvic mass lesion and bone scan on 04/11/2017, when the patient was admitted to the hospital showed diffuse skeletal metastatic pattern involving multiple foci throughout the axial skeleton including calvarium, cervical spine, ribs, thoracic spine, proximal femurs compatible with skeletal metastases. She underwent biopsy demonstrating diffusely positive synaptophysin cells consistent with morphologic impression of carcinoid tumor. Immunoglobulin stains for typical carcinomas such as CK 5/6, CK 20, TTF-1 and ER were all negative. The overall impression was of a metastatic carcinoid tumor. Dr. Rodriguez has discussed the case with Argenis, she does not wish to pursue aggressive treatment. She is being treated for pain currently but has breakthrough pain. They have discussed hospice care. Dr. Rodriguez is concerned about prognosis given the typically indolent course of low grade neuroendocrine tumors. At the bedside Argeins is accompanied by her . She is a very pleasant, focused person, converses easily, is clearly slightly uncomfortable but says she is feeling okay. She has no shortness of breath, has had no fevers or flushing. No diarrhea. She has hot flashes since menopause but this has been a chronic years long problem not anything new. She acknowledges decreased appetite, weight loss in the last several months. Her wish is to be at home and out of pain as much as possible. 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 There is no clear evidence of carcinoid syndrome per se. I agree with hospice care as the appropriate recommendation. Chemotherapy is sometimes offered to treat metastatic carcinoid with limited results and not insignificant toxicity. Octreotide is given for carcinoid syndrome symptoms such as diarrhea, flushing, not in play currently. Radiation typically does not have a role in a metastatic carcinoid but this could be explored; it would not specifically stabilize the vertebral lesions, however. Unfortunately difficult in terms of prognosis but my suspicion given the patient's weight loss and general deterioration is that her life expectancy is less than 6 months and that hospice care is highly appropriate. She has declined neurosurgery to stabilize the spine. RECOMMENDATIONS: 1. At this point I am recommending hospice care with pain control as needed. 2. Should she have acute on chronic skeletal event related pain, palliative radiation could be considered. Thank you for this consult.
[2017-04-18] MEDS: ASPIRIN 81 MG ENTERIC TAB PO SCH (21:21)
[2017-04-18 22:00] VITALS: BP 126/58
[2017-04-19] VITALS: BP 126/58
[2017-04-19] MEDS: IPRATROPIUM 0.5MG/ALBUTEROL 2.5MG INH SOL UD 3ML (DUONEB)(J7620) NEB SCH ×3 (01:31→13:26)
[2017-04-19 02:00] VITALS: BP 126/58
[2017-04-19 04:00] VITALS: BP 126/58
[2017-04-19 06:00] VITALS: BP 126/58
[2017-04-19] MEDS: SLF 3 ML SYR IV SCH ×2 (06:00→13:06)
[2017-04-19] MEDS: LEVOTHYROXINE 150MCG TABLET (0.15MG) PO SCH (06:31)
[2017-04-19 08:26] LABS: BASO % 0.5 % (0.0-1.0); EOS # 0.2 K/mm3 (0.0-0.50); EOS % 1.8 % (0.0-3.0); LARGE UNSTAINED CELL # 0.2 K/mm3 (0.0-0.4); LARGE UNSTAINED CELL % 2.2 % (0.0-4.0); LYMPH # 1.6 K/mm3 (1.5-4.5); LYMPH % 12.9 % (24.0-44.0); MEAN CORPUSCULAR HEMOGLOBIN 26.9 pg (27.0-33.0); MEAN CORPUSCULAR HGB CONC 32.6 g/dl (32.0-36.5); MEAN CORPUSCULAR VOLUME 82.5 fl (80.0-96.0); MONO # 0.5 K/mm3 (0.0-0.8); MONO % 4.9 % (0.0-5.0); NEUTROPHILS # 8.2 K/mm3 (1.8-7.7); NEUTROPHILS % 77.8 % (36.0-66.0); PLATELET COUNT, AUTOMATED 428 k/mm3 (150-450); RED CELL DISTRIBUTION WIDTH 14.2 % (11.5-14.5); WHITE BLOOD COUNT 10.6 K/mm3 (4.0-10.0)
[2017-04-19] MEDS ORDERED: ATRO1OPD PO (08:34)
[2017-04-19] MEDS ORDERED: MORP1SOL PO (08:34)
[2017-04-19] MEDS ORDERED: LORA1TAB12 PO (08:34)
[2017-04-19] MEDS ORDERED: SULF1TAB23 PO (08:34)
[2017-04-19 08:45] LABS: ALBUMIN 2.3 GM/DL (3.2-5.2); ALBUMIN/GLOBULIN RATIO 0.56 (1.00-1.93); ALKALINE PHOSPHATASE 74 U/L (45-117); ALT/SGPT 19 U/L (12-78); ANION GAP 5 MEQ/L (8-16); AST/SGOT 19 U/L (15-37); BILIRUBIN,TOTAL 0.3 MG/DL (0.2-1.0); BLOOD UREA NITROGEN 27 MG/DL (7-18); CALCIUM LEVEL 9.3 MG/DL (8.8-10.2); CARBON DIOXIDE LEVEL 28 MEQ/L (21-32); CHLORIDE LEVEL 104 MEQ/L (98-107); CREATININE FOR GFR 0.54 MG/DL (0.55-1.02); GLOMERULAR FILTRATION RATE > 60.0 (>39); GLUCOSE, FASTING 120 MG/DL (83-110); POTASSIUM SERUM 4.8 MEQ/L (3.5-5.1); SODIUM LEVEL 137 MEQ/L (136-145); TOTAL PROTEIN 6.4 GM/DL (6.4-8.2)
[2017-04-19] MEDS: LEVEMIR (INSULIN DETEMIR) 1 UNITS/0.01ML SC SCH (09:32)
[2017-04-19] MEDS: ENOXAPARIN 40 MG/0.4 ML SYRINGE (J1650) SC SCH (09:33)
[2017-04-19] MEDS: NYSTATIN 100,000 UNITS/GM TOPICAL PWD 15 GM TOP SCH (09:33)
[2017-04-19] MEDS: HumaLOG INSULIN (NovoLOG) PER UNIT SC SCH ×3 (09:33→13:05)
[2017-04-19] MEDS: BACTRIM 160MG/800MG DS TAB PO SCH (09:34)
[2017-04-19] MEDS: METHOCARBAMOL 500 MG TAB PO SCH ×2 (09:34→12:26)
[2017-04-19] MEDS: ATENOLOL 50 MG TAB PO SCH (09:34)
[2017-04-19] MEDS: ASCORBIC ACID 500 MG TAB PO SCH (09:34)
[2017-04-19] MEDS: CALCIUM CARBONATE 500 MG CHEW U/D PO SCH (09:34)
[2017-04-19] MEDS: VITAMIN D 1,000 INTERNATIONAL UNITS TABLET PO SCH (09:34)
[2017-04-19] MEDS: ALPRAZolam 0.5 MG TAB PO PRN (09:34)
[2017-04-19] MEDS: LISINOPRIL 10 MG TAB PO SCH ×2 (09:34→12:26)
[2017-04-19] MEDS ORDERED: LEVS0.124 SL (10:39)
[2017-04-19 12:26] VITALS: BP 126/58
[2017-04-19] MEDS: NORCO, ANEXSIA 5/325MG TABLET (HYDROcodone/ACETAMINOPHEN) PO PRN (12:26)
--- NOTE | 2017-04-20 02:56 | DSES ---
DATE OF ADMISSION: 04/09/2017 DATE OF DISCHARGE: 04/19/2017 ATTENDING PHYSICIAN: Leo Rodriguez MD. PRIMARY CARE PROVIDER: Belinda North, nurse practitioner. HISTORY OF PRESENT ILLNESS: 71-year-old female with a history of neck and left shoulder pain for a few months prior to her presentation. Worked up by primary care with an x-ray, which was unremarkable. Treated with Flexeril and Tylenol. However, pain progressed and symptoms worsened. She had returned to her primary care provider (PCP) who advised a CT scan of the cervical spine and showed a pathological C6 compression fracture. The patient was sent to the hospital for admission, had been placed on cervical collar and was deemed appropriate for admission to family medicine service. HOSPITAL COURSE: Patient had multiple imaging, which includes cervical spine MRI, CT chest, CT abdomen and pelvis, bone scan. Cervical spine MRI confirmed gross abnormal signal within C6, a compression fracture noted, diffuse enhancement postcontrast images with extensive anterior and posterior extraosseous soft tissue noted at this level causing moderate central canal stenosis. Findings are highly suspicious for metastatic disease. Bone scan proved significant skeletal metastatic pattern. Patient had a biopsy completed of one of the lesions and is positive for metastatic carcinoid tumor. Positive for neuroendocrine markers. Oncology did consult on patient, Dr. Anna Finch. Patient's prognosis is poor with a less than 6-month life expectancy. Hospice recommendation with pain control was advised. Patient does have the option for palliative radiation should she have acute on chronic skeletal event related pain. The patient is also status post neurosurgery consultation for potential surgical correction of the pathologic C6 fracture. Patient declined this surgery opting for hospice care. Patient was advised on the risk of potential paralysis with simple fall including and was advised to continue to wear her cervical collar at all times. Patient has verbally acknowledged her risk and continued to decline surgery. On physical exam today, vital signs are stable. She is afebrile. Intake and output (I and O) are stable. Patient is alert and oriented resting comfortably. Discussion was held with patient today regarding end of life wishes. Medical Orders for Life-Sustaining Treatment (MOLST) form was filled out to include DO NOT RESUSCITATE and COMFORT MEASURES ONLY. Patient has opted for hospice care and plan on starting that today at noon at her home. Cardiovascular: Heart rate, rhythm are regular. Pulmonary: Lungs are clear. ASSESSMENT: DISCHARGE DIAGNOSES: 1. C6 pathological fracture. 2. 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 3. Urinary tract infection (UTI) secondary to Escherichia (E) coli and Sphingomonas paucimobilis. SECONDARY DIAGNOSES: Include: 1. Hypertension. 2. Insulin-dependent diabetes. 3. Hyperlipidemia. 4. Hypothyroidism. 5. Anxiety with panic. PLAN: Patient will be discharged home. Diet is as tolerated. Activity is as tolerated. Patient is to wear a cervical collar at all times. Patient will have a Moreland catheter to gravity as she had bladder collapse while in hospital. MEDICATIONS: Are as follows: - atropine sulfate 1% solution 1-2 drops by mouth every 2 hours as needed for terminal secretions - lorazepam 1 mg tablet 1/2 tablet by mouth every 4 hours as needed for anxiety and agitation with a maximum daily dose of 3 mg - morphine sulfate concentrate 10 mg per 0.5 mL, she may take 0.25-1 mL by mouth every 2 hours as needed for pain or dyspnea with a maximum daily dose of 12 mL - trimethoprim with sulfamethoxazole 800/160 one tablet by mouth twice a day for the next 3 days Continued medications include: - atenolol 50 mg by mouth three times a day - insulin sliding scale - Levemir 60 units subcutaneously every morning - Levemir 65 units subcutaneously nightly - levothyroxine 150 mcg by mouth every morning - lisinopril 10 mg by mouth four times a day Patient and hospice may discuss her long-term medications and decide in conjunction with primary care provider (PCP) when to stop her insulin based on her oral intake. If patient opts not to check her blood sugars, insulin may be stopped as this will increase her risk of further complication. Patient is discharged in stable condition at time of discharge.
== END 2017-04-19 16:08 | disposition home or self-care (01) | DRG 543 ==
LOC: M ED 17:40 → M ED INP 19:17 → M PCU 21:10 → M MS5PR 04-13 15:10
PROVIDERS: ADMIT Hospitalist; ATTEND Family Medicine
PROC: 0JB73ZX Excision of Back Subcutaneous Tissue and Fascia, Percutaneous Approach, Diagnostic (ICD-10-PCS; principal; 2017-04-12)
DX: M84.58XA Pathological fracture in neoplastic disease, other specified site, initial encounter for fracture (principal); C34.92 Malignant neoplasm of unspecified part of left bronchus or lung; C79.51 Secondary malignant neoplasm of bone; N39.0 Urinary tract infection, site not specified; M50.00 Cervical disc disorder with myelopathy, unspecified cervical region; B96.20 Unspecified Escherichia coli [E. coli] as the cause of diseases classified elsewhere; I10 Essential (primary) hypertension; E78.5 Hyperlipidemia, unspecified; E03.9 Hypothyroidism, unspecified; B96.89 Other specified bacterial agents as the cause of diseases classified elsewhere; E11.9 Type 2 diabetes mellitus without complications; F41.0 Panic disorder [episodic paroxysmal anxiety]; E55.9 Vitamin D deficiency, unspecified; Z90.49 Acquired absence of other specified parts of digestive tract; Z90.710 Acquired absence of both cervix and uterus; Z83.3 Family history of diabetes mellitus; Z82.49 Family history of ischemic heart disease and other diseases of the circulatory system; Z81.1 Family history of alcohol abuse and dependence; Z84.1 Family history of disorders of kidney and ureter; Z90.722 Acquired absence of ovaries, bilateral; Z88.8 Allergy status to other drugs, medicaments and biological substances; Z79.82 Long term (current) use of aspirin; M50.10 Cervical disc disorder with radiculopathy, unspecified cervical region; Z79.899 Other long term (current) drug therapy; Z79.4 Long term (current) use of insulin; Z77.22 Contact with and (suspected) exposure to environmental tobacco smoke (acute) (chronic)

== ENCOUNTER → 2017-04-09 | Outpatient (CLI) | payer MEDICARE, OTHER ==
[~2017-04-09] MED LIST: ACET30TAB PO; ACET500T37 PO; ALPR0.5T3 PO; ASPI1TAB PO; ATEN50TA2 PO; CYCL10TA PO; INSUDET SC; INSUH10VL SC; LEVO150T7 PO; LISI10TA4 PO; METF500T PO; METH-107 PO; MULT1TAB18 PO; TUMS500C PO; VITA-121 PO; VITA500C3 PO
--- NOTE | 2017-04-09 16:45 | REP ---
REASON: Pain in the neck. No trauma. No priors. There is C6 vertebral plana with retropulsion of C6 beyond the posterior cortical margin of C5 by 3 mm and seem to project into the central canal. There is a cervical kyphosis from C3 to C7 with the apex at the C6 level. The overall density of C6 is markedly decreased compared to all other cervical and imaged thoracic spine vertebral bodies. There is abnormal lucency seen involving the pillar of C6 on the left which extends into the C6-7 facet joint and lateral mass of C6. The changes involving C6 are causing left foraminal narrowing of a moderate to severe degree and central canal stenosis at the C5-6 level with similar changes to a lesser degree seen involving the C6-7 level. I can not assess the intervertebral disc at C5-6 or C6-[address] and I suspect the aforementioned findings are in conjunction with at least a broad based bulge possibly with a disc extrusion causing potential further foraminal narrowing and central canal stenosis at both C5-6 and C6-7 levels. Increased paraspinal soft-tissue density is seen at C6-7 and to a slightly lesser degree at C5-6. Degenerative facet and uncovertebral joint changes are also seen at the C3-4 level on the left causing bony foraminal stenosis on the left. At no other cervical levels is there evidence of a bony cause of foraminal narrowing or central canal stenosis. IMPRESSION: A pathologic fracture of C6 is suspected with additional and related findings as described above. The C6 retropulsion needs neurosurgical consultation and consideration should be made for further evaluation with c-spine MRI. Other findings as described above. These findings were discussed with Dr. Jose F Santos at the time of this dictation and I impressed upon him the likely possibility of this fracture being unstable and the possibility of this patient requiring emergent c-spine fixation. Signed by Popeye Haque DO 04/10/2017 11:21 A
== END ==
LOC: M RAD 15:21
PROVIDERS: ATTEND Nurse Practitioner Family
DX: M54.2 Cervicalgia (principal); R93.8 Abnormal findings on diagnostic imaging of other specified body structures